=== PATIENT | male | born 1985 | race Caucasian/White ===

== ENCOUNTER 2019-03-07 15:05 | Inpatient (IN) | payer OTHER ==
--- NOTE | 2019-03-07 15:11 | PDOC ---
Rapid Medical Evaluation Chief Complaint: Pain, Acute Time Seen by Provider: 03/07/19 15:08 Medical Evaluation: Allergies Allergy/AdvReac Type Severity Reaction Status Date / Time milk AdvReac Mild Vomiting Verified 08/07/13 19:30 03/07/19 15:10 I have performed a brief in-person evaluation of this patient. The patient presents with a chief complaint of: right flank pain, kidney stone Pertinent physical exam findings:stable and in NAD, non-focal I have ordered the following:labs, ua, pt had ct in [facility] with 5 mm stone. donated left kidney, thinks he was given toradol shot at [facility] The patient will proceed to the ED for further evaluation. 03/07/19 15:40
[2019-03-07] MEDS ORDERED: LACTATED RINGERS SOLUTION 1000 ML INFUS.BAG IV ONE (15:15)
--- NOTE | 2019-03-07 15:17 | PDOC ---
History of Present Illness - General Chief Complaint: Pain, Acute Stated Complaint: SENT BY PCP/ KIDNEY [facility]ONES Time Seen by Provider: 03/07/19 15:08 History Source: Patient, Other ([facility] Records provided with radiology disk image (labeled and attached to paper records)), Primary Care Provider (Pre- arrival notification received from [facility] nurse.) Exam Limitations: No Limitations - History of Present Illness Initial Comments: HPI: 33 y/o male presenting to [facility] ER on referral from [facility] complaining of right lower back/flank pain since yesterday. Endorses nausea, as well as hematuria and decreased urine output this morning. CT of Abdomen/Pelvis was obtained and revealed a 5mm obstructing proximal ureteral calculus with moderate right hydroureteronephrosis. Another 3mm lower pole calculus was noted. Pt states he has chronic intermittent right lower back/flank pain for the past year but believed it to be muscular pain. Experienced another episode of hematuria approx. 1 month ago that resolved without medical intervention. The pt donated his left kidney to his sister, who suffers from lupus. Operation was performed at [facility] in [place] in 2009. Does not follow with a crotch piece baster or a urologist. PCP: Dr. Higgins ([facility]) Medical Hx: - Pt denies past medical history. Denies prescription medications. Surgical Hx: - S/p L Nephrectomy, 2009 Review of Systems: In addition to that documented in the HPI above, the additional ROS was obtained : Constitutional: Denies fevers or chills Head: Denies vision changes ENMT: Denies sore throat CV: Denies chest pain Resp: Denies SOB GI: Endorses nausea and decreased PO intake. Denies vomiting or diarrhea : Per HPI MSK: Denies recent trauma Skin: Denies new rashes Neuro: Denies new numbness or tingling or weakness Endocrine: Denies polyuria Heme: Denies bleeding or bruising Physical Examination: Constitutional: Well-developed, well-nourished adult male in no acute distress or obvious discomfort. Found semi-fowlers on hospital hallway bed. Alert and oriented x4. Answered all questions appropriately and completely. Speech was non -labored, non-pressured. Head: Normocephalic. No obvious external signs of trauma. Cardiovascular / Chest: Regular rate and regular rhythm. No murmur, rubs, clicks , or gallops. Peripheral pulses: radial pulses full. Respiratory: Breathing unlabored. Equal chest rise and fall. Clear to auscultation bilaterally. No stridor, no wheezing, no rhonchi. Gastrointestinal: abdomen is soft, non-tender, non-distended. Diffuse right tenderness to palpation without grimace or guarding. Neuro: Alert and oriented. Moving all four extremities spontaneously. Skin: Warm, dry, and intact. No bruising, rashes, or other lesions. : Mild R CVA tenderness. Psych: Affect: appropriate. Mood: normal. MDM: *Reviewed vital signs, nursing notes, and prior visit documentation (if available). 33 y/o presenting with 5mm obstructing nephrolithiasis in right ureter with hydroureteronephrosis on CT scan from [facility]. Pt is s/p left nephrectomy for donation. No infectious symptoms endorsed. Afebrile. Vitals unremarkable for hypotension or tachycardia. Physical exam as described above. Will obtain CBC, CMP, UA, and urine culture. Made NPO. Ordered LR for maintenance fluids. Urgent urologic consult placed. Will not obtain repeat imaging given availability of report and CT images. Unable to upload images to PACS because of a formatting issue. Report and image disc labeled with pt sticker and attached to paper chart by RN. CBC unremarkable for leukocytosis. CMP revealed elevated Cr with decreased GFR. No recent labs available for comparison. Pt unable to provide sufficient urine for UA and culture at time of note signing. Telephone consultation with Dr. Corea, urologist alteration specialist. Verbally appraised of the pts HPI, ED course, and current plan of management. Will take to OR tonight for stent placement as facility schedule allows. Requests pt be admitted to hospitalist service. Telephone consultation with resident Dr. Perez. Verbally appraised of the pts HPI, ED course, and current plan of management. Will admit pt to med/surg for attending Dr. Burroughs. Marcelo Springer M.D., PGY1 Emergency Medicine Resident Past History - Past Medical History Allergies/Adverse Reactions: Allergies Allergy/AdvReac Type Severity Reaction Status Date / Time milk AdvReac Mild Vomiting Verified 03/07/19 15:11 Home Medications: Ambulatory Orders No Home Medications 0 dose .ROUTE UTDICT 06/08/13 Diphenhydramine HCl [Benadryl Capsules -] 25 mg PO Q6H #28 capsule 08/07/13 EPINEPHrine (EPI-PEN 0.3MG) [Epipen 0.3MG -] 0.3 mg IM ASDIR #2 pens 08/07/13 Loratadine [Claritin -] 10 mg PO DAILY #30 tablet 08/07/13 Ranitidine HCl [Zantac 75] 75 mg PO DAILY #30 tablet 08/07/13 COPD: No Disorders: Yes (DONATED ONE KIDNEY) - Surgical History Abdominal Surgery: Yes (Donated left kidney) - Suicide/Smoking/Psychosocial Hx Smoking Status: No Smoking History: Never smoked Number of Cigarettes Smoked Daily: 0 Information on smoking cessation initiated: No Hx Alcohol Use: No Drug/Substance Use Hx: No *Physical Exam - Vital Signs Last Vital Signs Temp Pulse Resp BP Pulse Ox 98.6 F 76 18 124/70 97 03/07/19 15:08 03/07/19 15:08 03/07/19 15:08 03/07/19 15:08 03/07/19 15:08 ED Treatment Course - LABORATORY CBC & Chemistry Diagram: 03/07/19 16:03 03/07/19 16:03 - RADIOLOGY Radiology Studies Ordered: Category Date Time Status KIDNEY / RENAL US [US] Stat Ultrasound 03/07/19 15:16 Ordered *DC/Admit/Observation/Transfer Diagnosis at time of Disposition: Nephrolithiasis, History of nephrectomy, left, Elevated serum creatinine Obstruction of ureter Qualifiers: Laterality: right Qualified Code(s): N13.5 - Crossing vessel and stricture of ureter without hydronephrosis Hematuria Qualifiers: Hematuria type: gross Qualified Code(s): R31.0 - Gross hematuria - Discharge Dispostion Condition at time of disposition: Stable Decision to Admit order: Yes - Referrals - Patient Instructions - Post Discharge Activity
--- NOTE | 2019-03-07 15:58 | PDOC ---
Documentation entered by Sunitha Koehler SCRIBE, acting as scribe for Amaury Cano MD. Amaury Cano MD: This documentation has been prepared by the Rodo tabares Xhesika, SCRIBE, under my direction and personally reviewed by me in its entirety. I confirm that the documentation accurately reflects all work, treatment, procedures, and medical decision making performed by me. Attending Attestation - Resident Resident Name: SpirngerMarcelo - ED Attending Attestation I have performed the following: I have examined & evaluated the patient, The case was reviewed & discussed with the resident, I agree w/resident's findings & plan - HPI HPI: 03/07/19 15:53 33-year-old healthy male with history of donated left kidney nephrectomy 2009 presents from outside office diagnosed with obstructing 5 mm proximal right ureteral stone, onset of pain this morning, oliguria with gross hematuria since then. 03/07/19 16:13 The patient is a 33 year old male, with a significant PMH of L kidney donation ( 2009) who presents to the emergency department with R flank pain. The patient was seen at [facility], had a CT done which showed a 5mm obstructing stone. The patient notes he is endorsing hematuria since then. The patient denies chest pain, shortness of breath or dizziness. The patient denies fever, chills, nausea, vomiting, diarrhea or constipation. The patient denies dysuria, frequency, urgency Allergy: NKDA. milk Surgical History: Abdominal Surgery (Donated L kidney) PCP: Kyle Givens - Physicial Exam PE: 03/07/19 15:54 VSS well appearing lying in stretcher. no jaundice/pallor s1s2 rrr, ctab soft/nd/nt. + R CVAT. no edema, no rash - Medical Decision Making 03/07/19 15:54 33y/o M h/o L nephrectomy with obstructing proximal R ureteral stone. check Cr, UA no need for additional imaging will need urgent decompression with urology. discussed with Dr. Coronado, available for intervention. will discuss with OR.
[2019-03-07] MEDS ORDERED: LACTATED RINGERS SOLUTION 1,000 ML/1,000 ML INFUS.BAG IV SCH ×2 (16:00→17:05)
[2019-03-07 16:45] LABS: BASO % 0.6 % (0-2.0); EOS % 1.3 % (0-4.5); HEMATOCRIT 39.4 % (35.4-49); HEMOGLOBIN 13.3 GM/dL (11.7-16.9); LYMPH % 23.4 % (8-40); MCH 31.9 pg (25.7-33.7); MCHC 33.8 g/dl (32.0-35.9); MEAN CELL VOLUME 94.6 fl (80-96); MEAN PLT VOLUME 8.6 fl (7.5-11.1); MONO % 10.4 % (3.8-10.2); NEUT % 64.3 % (42.8-82.8); PLATELET COUNT 237 K/MM3 (134-434); RBC 4.17 M/mm3 (4.00-5.60); RDW 13.1 % (11.9-15.9)
[2019-03-07] MEDS ORDERED: morphine CARPU-JECT 4 MG/1 ML DISP.SYRIN IVPUSH ONE (16:59)
[2019-03-07] MEDS ORDERED: morphine SULFATE 4 MG/ML VIAL ONE (17:05)
[2019-03-07] MEDS ORDERED: morphine SULFATE 4 MG/ML VIAL IVPUSH PRN (17:09)
[2019-03-07 17:10] LABS: ALBUMIN 4.1 g/dl (3.4-5.0); BILIRUBIN,TOTAL 0.6 mg/dL (0.2-1); CALCIUM 9.1 mg/dL (8.5-10.1); CREATININE 2.7 mg/dL (0.55-1.3); POTASSIUM 4.1 mmol/L (3.5-5.1); TOT PROT 7.8 g/dl (6.4-8.2)
[2019-03-07] MEDS ORDERED: ONDANSETRON 4 MG/2 ML VIAL IVPB PRN ×2 (17:47→21:34)
[2019-03-07] MEDS ORDERED: CEFAZOLIN 1 GM in DEXTROSE 5%-WATER - 50 ML IVPB ONE (17:48)
--- NOTE | 2019-03-07 17:50 | HP ---
CHIEF COMPLAINT: pain abdomen PCP: dr crow HISTORY OF PRESENT ILLNESS: The patient is a 33 year old male, with a significant PMH of L kidney donation (2009) who presents to the emergency department with R flank pain8/10 in intensity, got better after medicine, non radiating The patient was seen at [facility] urgent care, had a CT done which showed a 5mm obstructing stone and was sent to ER. States he has not passed urine in last 24 hour. Denies fever and chills. Reports nausea but no vomiting. Denies burning mictuartion. Denies previous h/o renal stones ER course was notable for: (1)cbc, cmp (2)CT done in [facility] (3) Recent Travel: no PAST MEDICAL HISTORY: ckd PAST SURGICAL HISTORY: left nephrectomy in 2009. donated to his sister who has sle Social History: Smoking:no Alcohol:no Drugs: no Family History: elder sister has dvt and stroke. half sister has sle and cancer Allergies milk Adverse Reaction (Mild, Verified 03/07/19 15:11) Vomiting HOME MEDICATIONS: Home Medications Medication Instructions Recorded No Home Medications 0 dose .ROUTE UTDICT 06/08/13 Diphenhydramine HCl [Benadryl 25 mg PO Q6H #28 capsule 08/07/13 Capsules -] EPINEPHrine (EPI-PEN 0.3MG) 0.3 mg IM ASDIR #2 pens 08/07/13 [Epipen 0.3MG -] Loratadine [Claritin -] 10 mg PO DAILY #30 tablet 08/07/13 Ranitidine HCl [Zantac 75] 75 mg PO DAILY #30 tablet 08/07/13 REVIEW OF SYSTEMS CONSTITUTIONAL: Absent: fever, chills, diaphoresis, generalized weakness, malaise, loss of appetite, weight change HEENT: Absent: rhinorrhea, nasal congestion, throat pain, throat swelling, difficulty swallowing, mouth swelling, ear pain, eye pain, visual changes CARDIOVASCULAR: Absent: chest pain, syncope, palpitations, irregular heart rate, lightheadedness , peripheral edema RESPIRATORY: Absent: cough, shortness of breath, dyspnea with exertion, orthopnea, wheezing, stridor, hemoptysis GASTROINTESTINAL: Absent: abdominal pain, abdominal distension, nausea, vomiting, diarrhea, constipation, melena, hematochezia GENITOURINARY: Absent: dysuria, frequency, urgency, hesitancy, hematuria, flank pain, genital pain MUSCULOSKELETAL: Absent: myalgia, arthralgia, joint swelling, back pain, neck pain SKIN: Absent: rash, itching, pallor HEMATOLOGIC/IMMUNOLOGIC: Absent: easy bleeding, easy bruising, lymphadenopathy, frequent infections ENDOCRINE: Absent: unexplained weight gain, unexplained weight loss, heat intolerance, cold intolerance NEUROLOGIC: Absent: headache, focal weakness or paresthesias, dizziness, unsteady gait, seizure, mental status changes, bladder or bowel incontinence PSYCHIATRIC: Absent: anxiety, depression, suicidal or homicidal ideation, hallucinations. PHYSICAL EXAMINATION Vital Signs - 24 hr 03/07/19 03/07/19 15:08 15:11 Temperature 98.6 F Pulse Rate 76 Respiratory 18 18 Rate Blood Pressure 124/70 O2 Sat by Pulse 97 97 Oximetry (%) GENERAL: Awake, alert, and fully oriented, in no acute distress. HEAD: Normal with no signs of trauma. EYES: Pupils equal, round and reactive to light, extraocular movements intact, sclera anicteric, conjunctiva clear. No lid lag. EARS, NOSE, THROAT: Ears normal, nares patent, oropharynx clear without exudates. dry mucous membranes. NECK: Normal range of motion, supple without lymphadenopathy, JVD, or masses. LUNGS: Breath sounds equal, clear to auscultation bilaterally. No wheezes, and no crackles. No accessory muscle use. HEART: Regular rate and rhythm, normal S1 and S2 without murmur, rub or gallop. ABDOMEN: Soft, nontender, not distended, normoactive bowel sounds, no guarding, no rebound, no masses. no renal nara tenderness, bladder not palpable MUSCULOSKELETAL: Normal range of motion at all joints. No bony deformities or tenderness. No CVA tenderness. UPPER EXTREMITIES: 2+ pulses, warm, well-perfused. No cyanosis. No clubbing. No peripheral edema. LOWER EXTREMITIES: 2+ pulses, warm, well-perfused. No calf tenderness. No peripheral edema. NEUROLOGICAL: Cranial nerves II-XII intact. PSYCHIATRIC: Cooperative. Good eye contact. SKIN: Warm, dry, Laboratory Results - last 24 hr 03/07/19 03/07/19 16:03 16:03 WBC 9.0 RBC 4.17 Hgb 13.3 Hct 39.4 MCV 94.6 MCH 31.9 MCHC 33.8 RDW 13.1 Plt Count 237 MPV 8.6 Absolute Neuts (auto) 5.8 Neutrophils % 64.3 Lymphocytes % 23.4 Monocytes % 10.4 H Eosinophils % 1.3 Basophils % 0.6 Nucleated RBC % 0 Sodium 138 Potassium 4.1 Chloride 104 Carbon Dioxide 28 Anion Gap 6 L BUN 21 H Creatinine 2.7 H Est GFR (CKD-EPI)AfAm 34.10 Est GFR (CKD-EPI)NonAf 29.42 Random Glucose 89 Calcium 9.1 Total Bilirubin 0.6 AST 19 ALT 22 Alkaline Phosphatase 102 Total Protein 7.8 Albumin 4.1 ASSESSMENT/PLAN: The patient is a 33 year old male, with a significant PMH of L kidney donation (2009) who presents to the emergency department with R flank found to have obstructive uropathy. Right obstructive uropathy with hydronephrosis. Urology consult IVfluid LR 200ml/hr pain control with morphine zofran for nausea. As pt has only one kidney and is unable to provide us urine sample although he is afebrile and cbc is normal we will still give him one does of antibiotic. monitor intake and out put discussed with urologist pt is going for DJ stent tonight. pt/inr ua and urine culture ckd on abbey( base line 1.5) Pt it not aware of cause of ckd avoid nephrotoxic drugs iv fluid repeat cr tomorrow fluid: lr 200 ml/hr electrolyte: repeat in am nutrition: npo for now dvt pro: scd for now. gi pro: not required dispo: med surg Visit type - Emergency Visit Emergency Visit: Yes ED Registration Date: 03/07/19 Care time: The patient presented to the Emergency Department on the above date and was hospitalized for further evaluation of their emergent condition. - New Patient This patient is new to me today: Yes Date on this admission: 03/09/19 - Critical Care Critical Care patient: No
[2019-03-07] MEDS ORDERED: CEFAZOLIN 1 GM/D5W 1 GM/50 ML BAG ONE (17:51)
[2019-03-07] MEDS ORDERED: ONDANSETRON 4 MG/2 ML VIAL IVPUSH PRN (18:38)
[2019-03-07] MEDS ORDERED: LACTATED RINGERS SOLUTION 1,000 ML IV SCH (18:45)
--- NOTE | 2019-03-07 18:50 | PN ---
Teaching Attending Note Name of Resident: Jaylan Perez ATTENDING PHYSICIAN STATEMENT I saw and evaluated the patient. I reviewed the resident's note and discussed the case with the resident. I agree with the resident's findings and plan as documented. SUBJECTIVE: Complains of ongoing R flank discomfort. No further nausea/ vomiting. No fever/chills. No dysuria. Hematuria x 2 today OBJECTIVE: Afebrile, Hemodynamically Stable. Last Vital Signs Temp Pulse Resp BP Pulse Ox 98.6 F 76 18 124/70 97 03/07/19 15:08 03/07/19 15:08 03/07/19 15:11 03/07/19 15:08 03/07/19 15:11 HEENT - Atraumatic, Normocephalic Heart - S1, S2, RRR Lungs - clear to auscultation Abdomen - Soft, mild R sided tenderness. Bowel Sounds normal. Extremities - no edema, no calf tenderness. Laboratory Results - last 24 hr 03/07/19 03/07/19 16:03 16:03 WBC 9.0 RBC 4.17 Hgb 13.3 Hct 39.4 MCV 94.6 MCH 31.9 MCHC 33.8 RDW 13.1 Plt Count 237 MPV 8.6 Absolute Neuts (auto) 5.8 Neutrophils % 64.3 Lymphocytes % 23.4 Monocytes % 10.4 H Eosinophils % 1.3 Basophils % 0.6 Nucleated RBC % 0 Sodium 138 Potassium 4.1 Chloride 104 Carbon Dioxide 28 Anion Gap 6 L BUN 21 H Creatinine 2.7 H Est GFR (CKD-EPI)AfAm 34.10 Est GFR (CKD-EPI)NonAf 29.42 Random Glucose 89 Calcium 9.1 Total Bilirubin 0.6 AST 19 ALT 22 Alkaline Phosphatase 102 Total Protein 7.8 Albumin 4.1 Current Medications Generic Name Dose Route Start Last Admin Trade Name Freq PRN Reason Stop Dose Admin Lactated Ringer's 1,000 ml in 1,000 mls @ 200 mls/hr 03/07/19 17:05 03/07/19 17:18 Lactated Ringers Solution IV 200 mls/hr ASDIR KRISTOFER Administration Morphine Sulfate 4 mg 03/07/19 17:09 Morphine Sulfate IVPUSH Q6H PRN PAIN LEVEL 6-10 Ondansetron HCl 8 mg 03/07/19 17:47 Zofran Injection IVPB Q8H PRN NAUSEA Home Medications Medication Instructions Recorded No Home Medications 0 dose .ROUTE UTDICT 06/08/13 Diphenhydramine HCl [Benadryl 25 mg PO Q6H #28 capsule 08/07/13 Capsules -] EPINEPHrine (EPI-PEN 0.3MG) 0.3 mg IM ASDIR #2 pens 08/07/13 [Epipen 0.3MG -] Loratadine [Claritin -] 10 mg PO DAILY #30 tablet 08/07/13 Ranitidine HCl [Zantac 75] 75 mg PO DAILY #30 tablet 08/07/13 ASSESSMENT AND PLAN: 33 year old male with PMH of L Nephrectomy (donated to sister, 2009), presents to ED with L flank pain, nausea, vomiting, oliguria and hematuria. Initially seen at [facility] urgent care, where CT A/P showed 5 mm obstructing R stone. BELL on CKD 3 secondary to R Obstructive Uropathy secondary to Nephrolithiasis Creat 2.7 (baseline 1.5) Solitary kidney s/p L Nephrectomy 2009 (electively donated to sister) Urology consulted - for emergent OR intervention to relieve obstruction. No signs of superimposed infection - afebrile, hemodynamically stable. IV fluids, IV Morphine, IV Zofran prn. Will order reji-operative CXR, especially since patient recently had a URTI and still has residual cough. Post-op DVT Px (patient has family history of Thrombophophilia with sister having had DVTs and Strokes - never tested himself for coagulopathy) Further management as per Urology. GI Px - H2 Juanito
[2019-03-07 19:00] VITALS: BMI 26.4
[2019-03-07] MEDS ORDERED: MIDAZOLAM HCL 2 MG/2 ML SINGLE DOSE VIAL ONE (19:11)
[2019-03-07] MEDS ORDERED: KETOROLAC TROMETHAMINE 30 MG/1 ML VIAL ONE (19:12)
[2019-03-07] MEDS ORDERED: DEXAMETHASONE SOD PHOSPHATE 4 MG/1 ML VIAL ONE (19:12)
[2019-03-07] MEDS ORDERED: FAMOTIDINE 20 MG/50 ML IVPB 20 MG/50 ML MG IVPB SCH (19:15)
[2019-03-07] MEDS ORDERED: ACETAMINOPHEN 1000 MG/100 ML VIAL (NON FORMULARY) IVPB ONE (21:11)
[2019-03-07] MEDS ORDERED: ALBUTEROL SO4 0.083% IH SOL 2.5 MG/3 ML VIAL.NEB. NEB ONE (21:12)
[2019-03-07] MEDS ORDERED: ACETAMINOPHEN 325 MG TABLET (FP) PO PRN (21:34)
[2019-03-07] MEDS ORDERED: DEXTROSE 5%-0.45% SALINE 1,000 ML IV SCH (21:45)
[2019-03-07] MEDS ORDERED: ACETAMINOPHEN INJECTION 100 ML IVPB ONE (21:51)
[2019-03-07] MEDS ORDERED: ceFAZolin SODIUM 1 GM VIAL ONE (22:12)
[2019-03-07] MEDS: CEFAZOLIN 1 GM in DEXTROSE 5%-WATER - 50 ML IVPB SCH (22:15)
[2019-03-07] MEDS ORDERED: ONDANSETRON 4 MG/2 ML VIAL ONE (22:32)
[2019-03-07 23:02] LABS: INR 1.08 (0.83-1.09); PROTHROMBIN TIME (PATIENT) 12.8 SEC (9.7-13.0)
--- NOTE | 2019-03-07 23:28 | PN ---
Progress Note (short form) - Note Progress Note: Pt started coughing up emiliano blood, slightly frothy, in PACU after LMA for cysto /ureteral stent. Pt admitted after surgery that he had been coughing quite a lot since Wednesday, and had asked for a CXR to be done in the the ER prior to surgery (he did not admit to any colds during preoperative anesthetic interview) . Slightly complicating the picture was the fact that he had bitten down on the LMA during extubation, though in my opinion not hard enough to cause a negative pressure pulmonary edema (it was also not an ETT, but an LMA). SpO2 stayed in the high 90s with face tent, but would desaturate into high 80's with nasal cannula. Decision was made to transfer pt to ICU/telemetry instead of a normal bed, and will consult pulmonary in am. Spoke with ICU resident as well.
[2019-03-08] MEDS: DOCUSATE SODIUM 100 MG CAPSULE (FP) PO SCH ×3 (00:19→21:58)
--- NOTE | 2019-03-08 00:27 | CONSULT ---
Consultation: REQUESTING PROVIDER: CONSULT REQUEST: We have been asked to medically evaluate this patient for ( Hemoptysis ). HISTORY OF PRESENT ILLNESS: The patient is a 33 year old male, with a significant PMH of L kidney donation ( 2009) who presents to the emergency department with R flank pain8/10 in intensity, got better after medicine, non radiating The patient was seen at [facility] urgent care, had a CT done which showed a 5mm obstructing stone and was sent to ER. States he has not passed urine in last 24 hour. Denies fever and chills. Reports nausea but no vomiting. Denies burning mictuartion. Denies previous h/o renal stones after the procedure pt developed hemoptysis multiple times bright blood , asked by anesthesia to evaluate the pt pt denies any chest pain , palpitation , sob denies nay headache , blurry vision , leg swelling abdominal pain , pt reports some nausea but no vomiting pt reports one week history of runny nose , congestion , some fever and chills that was treated with OTC meds pt reports one time of hemoptysis last week family reports 2 sisters with DVTS and PE after procedure pt reports sister with lupus. REVIEW OF SYSTEMS: CONSTITUTIONAL: Absent: fever, chills, diaphoresis, generalized weakness, malaise, loss of appetite, weight change HEENT: Absent: rhinorrhea, nasal congestion, throat pain, throat swelling, difficulty swallowing, mouth swelling, ear pain, eye pain, visual changes CARDIOVASCULAR: Absent: chest pain, syncope, palpitations, irregular heart rate, lightheadedness , peripheral edema RESPIRATORY: Absent: cough, shortness of breath, dyspnea with exertion, orthopnea, wheezing, stridor, hemoptysis GASTROINTESTINAL: Absent: abdominal pain, abdominal distension, nausea, vomiting, diarrhea, constipation, melena, hematochezia GENITOURINARY: Absent: dysuria, frequency, urgency, hesitancy, hematuria, flank pain, genital pain MUSCULOSKELETAL: Absent: myalgia, arthralgia, joint swelling, back pain, neck pain SKIN: Absent: rash, itching, pallor HEMATOLOGIC/IMMUNOLOGIC: Absent: easy bleeding, easy bruising, lymphadenopathy, frequent infections ENDOCRINE: Absent: unexplained weight gain, unexplained weight loss, heat intolerance, cold intolerance NEUROLOGIC: Absent: headache, focal weakness or paresthesias, dizziness, unsteady gait, seizure, mental status changes, bladder or bowel incontinence PSYCHIATRIC: Absent: anxiety, depression, suicidal or homicidal ideation, hallucinations. PHYSICAL EXAMINATION Vital Signs - 24 hr 03/07/19 03/07/19 03/07/19 15:08 15:11 18:57 Temperature 98.6 F 98.3 F Pulse Rate 76 72 Respiratory 18 18 18 Rate Blood Pressure 124/70 132/73 O2 Sat by Pulse 97 97 Oximetry (%) 03/07/19 03/07/19 03/07/19 19:16 21:00 21:15 Temperature 98.3 F 98.5 F Pulse Rate 72 90 92 H Respiratory 18 20 23 H Rate Blood Pressure 132/73 113/67 127/41 L O2 Sat by Pulse 97 94 L Oximetry (%) 03/07/19 03/07/19 03/07/19 21:30 21:45 22:00 Temperature Pulse Rate 84 67 82 Respiratory 21 H 26 H 20 Rate Blood Pressure 134/45 L 126/49 L 125/46 L O2 Sat by Pulse 95 95 94 L Oximetry (%) 03/07/19 03/07/19 03/07/19 22:15 22:30 22:45 Temperature 99.5 F Pulse Rate 80 93 H 68 Respiratory 18 19 23 H Rate Blood Pressure 119/63 136/53 L 122/54 L O2 Sat by Pulse 92 L 95 94 L Oximetry (%) GENERAL: Awake, alert, and fully oriented, in no acute distress. HEAD: Normal with no signs of trauma. EYES: Pupils equal, round and reactive to light, extraocular movements intact, sclera anicteric, EARS, NOSE, THROAT: Ears normal, nares patent, oropharynx clear without exudates. Moist mucous membranes. NECK: Normal range of motion, supple LUNGS: Breath sounds equal, clear to auscultation bilaterally. No wheezes, and no crackles. No accessory muscle use. HEART: Regular rate and rhythm, normal S1 and S2 without murmur, rub or gallop. ABDOMEN: Soft, nontender, not distended, normoactive bowel sounds, no guarding, LOWER EXTREMITIES: 2+ pulses, warm, well-perfused. No calf tenderness. No peripheral edema. NEUROLOGICAL: no focal deficit . Normal speech. Normal gait. Laboratory Results - last 24 hr 03/07/19 03/07/19 03/07/19 16:03 16:03 22:05 WBC 9.0 RBC 4.17 Hgb 13.3 Hct 39.4 MCV 94.6 MCH 31.9 MCHC 33.8 RDW 13.1 Plt Count 237 MPV 8.6 Absolute Neuts (auto) 5.8 Neutrophils % 64.3 Lymphocytes % 23.4 Monocytes % 10.4 H Eosinophils % 1.3 Basophils % 0.6 Nucleated RBC % 0 PT with INR INR Sodium 138 Potassium 4.1 Chloride 104 Carbon Dioxide 28 Anion Gap 6 L BUN 21 H Creatinine 2.7 H Est GFR (CKD-EPI)AfAm 34.10 Est GFR (CKD-EPI)NonAf 29.42 Random Glucose 89 Calcium 9.1 Total Bilirubin 0.6 AST 19 ALT 22 Alkaline Phosphatase 102 Total Protein 7.8 Albumin 4.1 Blood Type O POSITIVE Antibody Screen Negative 03/07/19 22:05 WBC RBC Hgb Hct MCV MCH MCHC RDW Plt Count MPV Absolute Neuts (auto) Neutrophils % Lymphocytes % Monocytes % Eosinophils % Basophils % Nucleated RBC % PT with INR 12.80 INR 1.08 Sodium Potassium Chloride Carbon Dioxide Anion Gap BUN Creatinine Est GFR (CKD-EPI)AfAm Est GFR (CKD-EPI)NonAf Random Glucose Calcium Total Bilirubin AST ALT Alkaline Phosphatase Total Protein Albumin Blood Type Antibody Screen Active Medications Generic Name Dose Route Start Last Admin Trade Name Freq PRN Reason Stop Dose Admin Acetaminophen 650 mg 03/07/19 21:34 Tylenol - PO Q6H PRN FEVER > 101 Docusate Sodium 200 mg 03/07/19 22:00 03/08/19 00:19 Colace - PO Not Given BID [facility] Fentanyl 50 mcg 03/07/19 18:38 03/07/19 21:50 Sublimaze Injection - IVPUSH 03/08/19 18:37 50 mcg [id number] PRN Administration PAIN-PACU ORDER X 4 DOSES ONLY Lactated Ringer's 1,000 ml in 1,000 mls @ 200 mls/hr 03/07/19 17:05 03/07/19 17:18 Lactated Ringers Solution IV 200 mls/hr ASDIR [facility] Administration Lactated Ringer's 1,000 mls @ 75 mls/hr 03/07/19 18:45 03/07/19 19:12 Lactated Ringers Solution IV Not Given ASDIR [facility] Famotidine/Sodium Chloride 20 mg in 50 mls @ 100 mls/hr 03/07/19 19:15 22:09 Pepcid 20 Mg Premixed Ivpb - IVPB Not Given Q36H [facility] Dextrose/Sodium Chloride 1,000 mls @ 125 mls/hr 03/07/19 21:45 03/07/19 22:00 D5-1/2ns - IV 100 mls ASDIR [facility] Administration Cefazolin Sodium 1 gm/ 50 mls @ 100 mls/hr 03/07/19 22:00 03/07/19 22:15 Dextrose IVPB 03/08/19 10:29 50 mls Q6H [facility] Administration Morphine Sulfate 4 mg 03/07/19 17:09 Morphine Sulfate IVPUSH Q6H PRN PAIN LEVEL 6-10 Ondansetron HCl 8 mg 03/07/19 17:47 Zofran Injection IVPB Q8H PRN NAUSEA Ondansetron HCl 4 mg 03/07/19 18:38 03/07/19 22:35 Zofran Injection IVPUSH 4 mg Q6H PRN Administration NAUSEA AND/OR VOMITING Tamsulosin HCl 0.4 mg 03/08/19 08:30 Flomax - PO DAILY@0830 [facility] ASSESSMENT/PLAN: 33 year old male with one kidney (donate to his sister in 2009 ) presented to the hospital for R renal stent , due to kidney stone , has one week hsitory of cough and URI , developed hemoptysis after the procedure and admitted to tele for observation # Hemoptysis , # S/P Right renal uretral stent due to kidney stones # solo kidney Plan * cxr with diffuse opacities right lung worse than left * one week history of respiratory congestion and cough with green sputum * no smoking history but family history of lupus and coagulopathy, PE, DVTS * differential is iatrogenic vs infection (bronchitis vs CAP ,TB, fungal , Aspirgilosis ) vs inflammatory vasculitis vs malignancy ,vs bronchiectasis, R.O PE , * cbc, cmp, mg, p, D- DImer , ESR, CRP, ANCA C,p , IDALIA , AGBM Antibodies , * ECHO in AM , BNP * sputum cx , sputum gram stain , * no history of night sweats or weight loss , no recent travel * consider CT chest in AM * no chemechal DVTS proph due to hemoptysis * TEDS, SCDS , * tele monitor * BP, Pulse oxy * chest CT w/o contrast * Dispo: We will continue to follow the patient. Thank you for this consultative opportunity. Visit type - Emergency Visit Emergency Visit: Yes ED Registration Date: 03/07/19 Care time: The patient presented to the Emergency Department on the above date and was hospitalized for further evaluation of their emergent condition. - New Patient This patient is new to me today: Yes Date on this admission: 03/07/19 - Critical Care Critical Care patient: Yes Total Critical Care Time (in minutes): 45 Critical Care Statement: The care of this patient involved high complexity decision making to prevent further life threatening deterioration of the patient 's condition and/or to evaluate & treat vital organ system(s) failure or risk of failure.
[2019-03-08 00:44] LABS: ALBUMIN 3.2 g/dl (3.4-5.0); BILIRUBIN,TOTAL 0.4 mg/dL (0.2-1); CALCIUM 8.2 mg/dL (8.5-10.1); CREATININE 2.2 mg/dL (0.55-1.3); MAGNESIUM 1.7 mg/dL (1.8-2.4); TOT PROT 6.4 g/dl (6.4-8.2)
[2019-03-08 01:41] LABS: HEMATOCRIT 40.6 % (35.4-49); HEMOGLOBIN 13.3 GM/dL (11.7-16.9); MCH 31.2 pg (25.7-33.7); MCHC 32.9 g/dl (32.0-35.9); MEAN CELL VOLUME 94.8 fl (80-96); MEAN PLT VOLUME 8.6 fl (7.5-11.1); PLATELET COUNT 218 K/MM3 (134-434); RBC 4.28 M/mm3 (4.00-5.60); WHITE BLOOD COUNT 11.7 K/mm3 (4.0-10.0)
[2019-03-08 01:57] LABS: INR 1.06 (0.83-1.09); PROTHROMBIN TIME (PATIENT) 12.5 SEC (9.7-13.0)
[2019-03-08 02:00] LABS: ACTIVATED PTT 30.5 SECONDS (25.2-36.5)
[2019-03-08] MEDS ORDERED: DEXTROSE 5%-WATER - 50 ML IVPB ONE ×2 (02:27→11:51)
[2019-03-08] MEDS ORDERED: ceFAZolin SODIUM 1 GM VIAL ONE ×2 (02:27→11:06)
[2019-03-08] MEDS: CEFAZOLIN 1 GM in DEXTROSE 5%-WATER - 50 ML IVPB SCH ×2 (03:04→11:31)
[2019-03-08] MEDS ORDERED: DEXMEDETOMIDINE HCL 200 MCG in SODIUM CHLORIDE 48 ML IVPB SCH (06:15)
[2019-03-08 06:57] LABS: BASO % 0.1 % (0-2.0); HEMATOCRIT 38.7 % (35.4-49); HEMOGLOBIN 13.2 GM/dL (11.7-16.9); LYMPH % 9.9 % (8-40); MCH 32.1 pg (25.7-33.7); MCHC 34.2 g/dl (32.0-35.9); MEAN CELL VOLUME 93.8 fl (80-96); MEAN PLT VOLUME 8.6 fl (7.5-11.1); MONO % 6.9 % (3.8-10.2); NEUT % 83.1 % (42.8-82.8); PLATELET COUNT 243 K/MM3 (134-434); RBC 4.12 M/mm3 (4.00-5.60); RDW 12.7 % (11.9-15.9); WHITE BLOOD COUNT 11.2 K/mm3 (4.0-10.0)
[2019-03-08 07:39] LABS: ALBUMIN 3.4 g/dl (3.4-5.0); BILIRUBIN,TOTAL 0.6 mg/dL (0.2-1); CALCIUM 8.9 mg/dL (8.5-10.1); CREATININE 2.1 mg/dL (0.55-1.3); MAGNESIUM 2.1 mg/dL (1.8-2.4); PHOSPHOROUS 3.6 mg/dL (2.5-4.9); POTASSIUM 4.7 mmol/L (3.5-5.1); TOT PROT 6.9 g/dl (6.4-8.2)
[2019-03-08] MEDS ORDERED: LACTATED RINGERS SOLUTION 1,000 ML IV SCH ×3 (07:46→16:11)
[2019-03-08] MEDS ORDERED: TAMSULOSIN HCL 0.4 MG CAP PO SCH (08:30)
[2019-03-08 08:49] LABS: EPI CELLS 1.2 /HPF (0-5/HPF); HYALINE CASTS 0 /lpf (0-8); URINE APPEARANCE CLEAR; URINE BACTERIA 0.5 /hpf (NEGATIVE); URINE BILIRUBIN NEGATIVE (NEGATIVE); URINE COLOR RED; URINE GLUCOSE (UA) NEGATIVE (NEGATIVE); URINE KETONE NEGATIVE (NEGATIVE); URINE LEUK ESTERASE TRACE (NEGATIVE); URINE NITRITE NEGATIVE (NEGATIVE); URINE PROTEIN 1+ (NEGATIVE); URINE RBC 378 /hpf (0-4); URINE UROBILINOGEN 0.2 mg/dL (0.2-1.0); URINE WBC 6 /hpf (0-5)
[2019-03-08] MEDS ORDERED: AZITHROMYCIN 250 MG TABLET PO SCH (10:00)
[2019-03-08] MEDS ORDERED: CEFTRIAXONE 1 GM in DEXTROSE 5%-WATER - 100 ML IVPB SCH (10:00)
[2019-03-08] MEDS ORDERED: DEXTROSE 5%-WATER - 100 ML IVPB ONE (11:06)
[2019-03-08] MEDS ORDERED: cefTRIAXone SODIUM 1 GM VIAL ONE (11:51)
[2019-03-08] MEDS ORDERED: CEFTRIAXONE 1 GM in DEXTROSE 5%-WATER - 50 ML IVPB SCH (12:00)
--- NOTE | 2019-03-08 12:23 | PN ---
Teaching Attending Note Name of Resident: Hugh De La Cruz ATTENDING PHYSICIAN STATEMENT I saw and evaluated the patient. I reviewed the resident's note and discussed the case with the resident. I agree with the resident's findings and plan as documented. SUBJECTIVE: Pt seen and examined in the ICU. Still with hemoptysis but appears to be resolving. CT chest done showing bilateral upper lobe infiltrates as well as nonspecific nodules. OBJECTIVE: Vital Signs Period Temp Pulse Resp BP Sys/Bravo Pulse Ox Last 24 Hr 98.2 F-99.5 F 67-93 18-26 107-136/41-73 92-97 Intake & Output 03/05/19 03/06/19 03/07/19 03/08/19 23:59 23:59 23:59 23:59 Intake Total 1775 1250 Output Total 800 1600 Balance 975 -350 Weight 76.657 kg Gen: NAD at rest Heart: RRR Lung: decreased breath sounds at the bases Abd: soft, nontender Ext: no edema CBC, BMP 03/08/19 05:30 03/08/19 05:30 Active Medications Acetaminophen (Tylenol -) 650 mg PO Q6H PRN PRN Reason: FEVER > 101 Azithromycin (Zithromax -) 500 mg PO DAILY [facility] Docusate Sodium (Colace -) 200 mg PO BID [facility] Last Admin: 03/08/19 11:31 Dose: 200 mg Fentanyl (Sublimaze Injection -) 50 mcg IVPUSH [id number] PRN PRN Reason: PAIN-PACU ORDER X 4 DOSES ONLY Stop: 03/08/19 18:37 Last Admin: 03/07/19 21:50 Dose: 50 mcg Famotidine/Sodium Chloride (Pepcid 20 Mg Premixed Ivpb -) 20 mg in 50 mls @ 100 mls/hr IVPB Q36H [facility] Last Admin: 03/07/19 22:09 Dose: Not Given Ceftriaxone Sodium 1 gm/ (Dextrose) 50 mls @ 200 mls/hr IVPB DAILY [facility]; Protocol Last Admin: 03/08/19 11:53 Dose: 200 mls/hr Lactated Ringer's (Lactated Ringers Solution) 1,000 mls @ 100 mls/hr IV ASDIR [facility] Last Admin: 03/08/19 11:31 Dose: 100 mls/hr Morphine Sulfate (Morphine Sulfate) 4 mg IVPUSH Q6H PRN PRN Reason: PAIN LEVEL 6-10 Ondansetron HCl (Zofran Injection) 8 mg IVPB Q8H PRN PRN Reason: NAUSEA Ondansetron HCl (Zofran Injection) 4 mg IVPUSH Q6H PRN PRN Reason: NAUSEA AND/OR VOMITING Last Admin: 03/07/19 22:35 Dose: 4 mg Tamsulosin HCl (Flomax -) 0.4 mg PO DAILY@0830 [facility] Last Admin: 03/08/19 08:35 Dose: 0.4 mg ASSESSMENT AND PLAN: Ureteral Stone s/p stent placement Hemoptysis Pneumonia Acute on Chronic Renal Failure h/o Left Nephrectomy - antibiotics for pneumonia - sputum culture, urine antigens - send quantiferon - monitor and quantify hemoptysis - IVF - monitor urine output, creatinine - can d/c airborne isolation, low suspicion for TB - DVT prophylaxis - can monitor on floor
--- NOTE | 2019-03-08 12:57 | PN ---
Progress Note (short form) - Note Progress Note: ID consult dictated imp/reccd 33 yo man history of solitary kidney (donated kidney to his sister in 2009) admitted for anuria and flank pain noted to have cough with green sputum over the weekend stayed home from work on Wednesday and Wednesday due to cough no hemoptysis on Wednesday he developed flank pain and anuria one episode vomiting water no fevers or chills, no weight loss or night sweats he has had prior episoded of flank/back pain attributed to back s'asm last month he had gross hematuria that spontaneously resolved he was admitted yesterday after CT scan done at [facility] showed an obstructing stone he went for surgery last night and had a stent placed post procedure he had hemoptysis and had chest ct showing bilateral infiltrates right more then left started on cefazolin and switched to ceftriaxone /zithromax this am CAP s/p ureteral stent for nephrolithiasis (one kidney) doubt AFB disease- no risk factors, acute illness, probably associated with pneumonia and LMA doubt benefit of blood cultures as he has been started on antibiotics continue rocephin/zithromax sputum culture urinary antigens- legionella and pneumococcus ckd- monitor renal function d/w procurement manager Problem List - Problems (1) Pneumonia Code(s): J18.9 - PNEUMONIA, UNSPECIFIED ORGANISM (2) Nephrolithiasis Code(s): N20.0 - CALCULUS OF KIDNEY (3) Solitary kidney, acquired Code(s): Z90.5 - ACQUIRED ABSENCE OF KIDNEY
--- NOTE | 2019-03-08 13:04 | EKG ---
Test Reason : Blood Pressure : / mmHG Vent. Rate : 078 BPM Atrial Rate : 078 BPM P-R Int : 148 ms QRS Dur : 088 ms QT Int : 386 ms P-R-T Axes : 062 019 031 degrees QTc Int : 440 ms NORMAL SINUS RHYTHM NORMAL ECG NO PREVIOUS ECGS AVAILABLE Confirmed by SHIRA FANG, YUSUF ([id number]) on 03/08/2019 1:03:52 PM Referred By: Confirmed By:YUSUF SILVA MD
--- NOTE | 2019-03-08 14:03 | PN ---
Progress Note, Physician History of Present Illness: Patient seen and examined at bedside. No events overnight. No new complaints. patient continues to have hemoptysis episodes this AM, but states they are improving. - Current Medication List Current Medications: Active Medications Acetaminophen (Tylenol -) 650 mg PO Q6H PRN PRN Reason: FEVER > 101 Azithromycin (Zithromax -) 500 mg PO DAILY [facility] Docusate Sodium (Colace -) 200 mg PO BID [facility] Last Admin: 03/08/19 11:31 Dose: 200 mg Fentanyl (Sublimaze Injection -) 50 mcg IVPUSH [id number] PRN PRN Reason: PAIN-PACU ORDER X 4 DOSES ONLY Stop: 03/08/19 18:37 Last Admin: 03/07/19 21:50 Dose: 50 mcg Famotidine/Sodium Chloride (Pepcid 20 Mg Premixed Ivpb -) 20 mg in 50 mls @ 100 mls/hr IVPB Q36H [facility] Last Admin: 03/07/19 22:09 Dose: Not Given Ceftriaxone Sodium 1 gm/ (Dextrose) 50 mls @ 200 mls/hr IVPB DAILY [facility]; Protocol Last Admin: 03/08/19 11:53 Dose: 200 mls/hr Lactated Ringer's (Lactated Ringers Solution) 1,000 mls @ 100 mls/hr IV ASDIR [facility] Last Admin: 03/08/19 11:31 Dose: 100 mls/hr Morphine Sulfate (Morphine Sulfate) 4 mg IVPUSH Q6H PRN PRN Reason: PAIN LEVEL 6-10 Ondansetron HCl (Zofran Injection) 8 mg IVPB Q8H PRN PRN Reason: NAUSEA Ondansetron HCl (Zofran Injection) 4 mg IVPUSH Q6H PRN PRN Reason: NAUSEA AND/OR VOMITING Last Admin: 03/07/19 22:35 Dose: 4 mg Tamsulosin HCl (Flomax -) 0.4 mg PO DAILY@0830 [facility] Last Admin: 03/08/19 08:35 Dose: 0.4 mg - Objective Vital Signs: Vital Signs Temperature 98.2 F 03/07/19 23:50 Pulse Rate 69 03/08/19 07:00 Respiratory Rate 18 03/08/19 07:00 Blood Pressure 107/49 L 03/08/19 07:00 O2 Sat by Pulse Oximetry (%) 94 L 03/08/19 02:18 Constitutional: Yes: Well Nourished, No Distress, Calm Eyes: Yes: Conjunctiva Clear, EOM Intact HENT: Yes: Atraumatic, Normocephalic Neck: Yes: Supple, Trachea Midline Cardiovascular: Yes: Regular Rate and Rhythm, S1, S2. No: Gallop, Murmur, Rub Respiratory: Yes: Regular, CTA Bilaterally Gastrointestinal: Yes: Normal Bowel Sounds, Soft Edema: No Neurological: Yes: Alert, Oriented, Cran Nerves II-XII Intact Labs: CBC, BMP 03/08/19 05:30 03/08/19 05:30 INR, PTT INR 1.06 (0.83-1.09) 03/08/19 01:26 Assessment/Plan 33 year old male with solitary kidney (donated to his sister in 2009) presented to the hospital c/o n/v and found to have renal stone. Pt admitted to ICU after he developed hemoptysis after LMA extubation following ureteral stent placement. #Neuro -A&Ox3, no deficits. #Pulmonary -patient developed hemoptysis s/o LMA extubation. Per Anesthesia note, patient may have bitten on LMA during extraction. -Patient w/ mild SOB today -Pt titrated from Venturi mask to 2L NC, saturating >95 -CT chest shows b/l infiltrates concerning for aspiration PNA vs CAP -on ceftriaxone and azithromycin day 1 -ID consulted -Hemoptysis improving today, Hb stable -low suspicion for TB; will send Quant to r/o and d/c iso -family history of DVT/PE; low suspicion for embolic event -will get LE doppler r/o DVT -f/u sputum cx, urine antigens for PNA #Cardio -BP stable -no active issues #GI -patient came into ER c/o n/v; no episodes at this time -can give zofran PRN if required #Renal -patient w/ solitary kidney -monitor creatinine -avoid nephrotoxic drugs -LR @ 100 #Prophy -SCDs #FEN -LR @ 100 -lytes wnl -Regular diet #Dispo -patient stable for transfer to floors.
--- NOTE | 2019-03-08 14:26 | PN ---
Progress Note (short form) - Note Progress Note: Anesthesia POD#1 S/P Ureteral Stent Placement under GA VSS,hemoptysis post/op noticed. No bad event during GA. CT scan showed bilateral infilterates. A/P Blood in sputum is stopped now. Looks like the hemptysis was from his existing pneumonia Eleonora Mcintyre MD.
--- NOTE | 2019-03-08 15:28 | ECHO ---
Name: BRANDAN LAMAS Exam:Adult Echocardiogram Study Date: 03/08/2019 08:12 AM Age: 33 yrs Reason For Study: hemoptysis Height: 67 in Weight: 169 lb BSA: 1.9 m2 MMode/2D Measurements & Calculations RVDd: 2.7 cm Ao root diam: 3.4 cm IVSd: 0.65 cm LA dimension: 2.6 cm LVIDd: 4.5 cm ACS: 2.2 cm LVIDs: 2.6 cm LVPWd: 0.68 cm IVSs: 0.87 cm LVPWs: 1.2 cm EDV(Teich): 90.5 ml ESV(Teich): 24.9 ml Doppler Measurements & Calculations MV E max lisandro: 95.5 cm/sec Ao V2 max: 100.1 cm/sec MV A max lisandro: 56.5 cm/sec Ao max P.0 mmHg MV E/A: 1.7 Ao V2 mean: 77.9 cm/sec Ao mean P.6 mmHg Ao V2 VTI: 19.5 cm MR max lisandro: 420.8 cm/sec TR max lisandro: 178.4 cm/sec MR max P.8 mmHg TR max P.9 mmHg Med Peak E' Lisandro: 10.2 cm/sec Med E/e': 9.4 Lat Peak E' Lisandro: 10.6 cm/sec Lat E/e': 9.0 Procedure A two-dimensional transthoracic echocardiogram with color flow and Doppler was performed. A complete two- dimensional transthoracic echocardiogram was performed (2D, M-mode, Doppler and color flow Doppler). Left Ventricle The left ventricle is normal in size. Left ventricular systolic function is normal. Left Ventricular Filling pattern is normal for age. The left ventricular wall motion is normal. Right Ventricle The right ventricle is normal size. There is normal right ventricular wall thickness. The right ventr icular systolic function is normal. The right ventricular wall motion is normal. Atria The left atrial size is normal. Right atrial size is normal. Mitral Valve The mitral valve is normal in structure and function. There is no mitral valve stenosis. There is tra ce to mild mitral regurgitation. Tricuspid Valve The tricuspid valve is normal in structure and function. There is no tricuspid stenosis. There is Tra ce to mild tricuspid regurgitation. Right ventricular systolic pressure is normal. Aortic Valve The aortic valve is normal in structure and function. No hemodynamically significant valvular aortic stenosis. No aortic regurgitation is present. Pulmonic Valve The pulmonic valve is not well visualized. Great Vessels The aortic root is normal size. Pericardium/Pleura There is no pericardial effusion. Interpretation Summary The left ventricle is normal in size. Left ventricular systolic function is normal. The left ventricular wall motion is normal. Left Ventricular Filling pattern is normal for age. The right ventricle is normal size. The right ventricular systolic function is normal. There is Trace to mild tricuspid regurgitation. Right ventricular systolic pressure is normal. MD Alexis De Dios 03/08/2019 03:27 PM
--- NOTE | 2019-03-08 15:35 | PN ---
Physical Exam: SUBJECTIVE: Patient seen and examined at bedside- no acute events overnigt; patient states he is having mild dyspnea however is feeling better; his hemoptysis has improved and he is having less and less episdoes; he is urinating - he denies CP/N/V OBJECTIVE: Vital Signs Period Temp Pulse Resp BP Sys/Bravo Pulse Ox Last 24 Hr 98.2 F-99.5 F 67-93 18-26 107-136/41-73 92-97 GENERAL: The patient is awake, alert saturating in 90's in EYES: PEERLA: EOMI no scleral icterus . NECK: no JVD; no lymphadenopathy LUNGS: diminished breath sounds at the bases. HEART: Regular rate and rhythm, S1, S2 without murmur, rub or gallop. ABDOMEN: Soft, nontender, nondistended, normoactive bowel sounds, no guarding, no rebound, no hepatosplenomegaly, no masses. EXTREMITIES: 2+ pulses, warm, well-perfused, no edema. PSYCH: Normal mood, normal affect. SKIN: Warm, dry, normal turgor, no rashes or lesions noted Laboratory Results - last 24 hr 03/07/19 03/07/19 03/07/19 16:03 16:03 22:05 WBC 9.0 RBC 4.17 Hgb 13.3 Hct 39.4 MCV 94.6 MCH 31.9 MCHC 33.8 RDW 13.1 Plt Count 237 MPV 8.6 Absolute Neuts (auto) 5.8 Neutrophils % 64.3 Lymphocytes % 23.4 Monocytes % 10.4 H Eosinophils % 1.3 Basophils % 0.6 Nucleated RBC % 0 ESR PT with INR INR PTT (Actin FS) D-Dimer Sodium 138 Potassium 4.1 Chloride 104 Carbon Dioxide 28 Anion Gap 6 L BUN 21 H Creatinine 2.7 H Est GFR (CKD-EPI)AfAm 34.10 Est GFR (CKD-EPI)NonAf 29.42 Random Glucose 89 Calcium 9.1 Phosphorus Magnesium Total Bilirubin 0.6 AST 19 ALT 22 Alkaline Phosphatase 102 C-Reactive Protein B-Natriuretic Peptide Total Protein 7.8 Albumin 4.1 Urine Color Urine Appearance Urine pH Ur Specific [place] Urine Protein Urine Glucose (UA) Urine Ketones Urine Blood Urine Nitrite Urine Bilirubin Urine Urobilinogen Ur Leukocyte Esterase Urine WBC (Auto) Urine RBC (Auto) Urine Casts (Auto) U Epithel Cells (Auto) Urine Bacteria (Auto) Blood Type O POSITIVE Antibody Screen Negative 03/07/19 03/07/19 03/07/19 22:05 22:20 22:20 WBC RBC Hgb Hct MCV MCH MCHC RDW Plt Count MPV Absolute Neuts (auto) Neutrophils % Lymphocytes % Monocytes % Eosinophils % Basophils % Nucleated RBC % ESR PT with INR 12.80 INR 1.08 PTT (Actin FS) D-Dimer Sodium 141 Potassium 4.0 Chloride 107 Carbon Dioxide 29 Anion Gap 6 L BUN 22 H Creatinine 2.2 H Est GFR (CKD-EPI)AfAm 43.68 Est GFR (CKD-EPI)NonAf 37.69 Random Glucose 120 H Calcium 8.2 L Phosphorus 4.0 Magnesium 1.7 L Total Bilirubin 0.4 AST 17 ALT 19 Alkaline Phosphatase 90 C-Reactive Protein B-Natriuretic Peptide Total Protein 6.4 Albumin 3.2 L Urine Color Urine Appearance Urine pH Ur Specific [place] Urine Protein Urine Glucose (UA) Urine Ketones Urine Blood Urine Nitrite Urine Bilirubin Urine Urobilinogen Ur Leukocyte Esterase Urine WBC (Auto) Urine RBC (Auto) Urine Casts (Auto) U Epithel Cells (Auto) Urine Bacteria (Auto) Blood Type Cancelled Antibody Screen Cancelled 03/07/19 03/08/19 03/08/19 22:20 00:12 01:26 WBC 11.7 H RBC 4.28 Hgb 13.3 Hct 40.6 MCV 94.8 MCH 31.2 MCHC 32.9 RDW 13.0 Plt Count 218 MPV 8.6 Absolute Neuts (auto) Neutrophils % Lymphocytes % Monocytes % Eosinophils % Basophils % Nucleated RBC % ESR PT with INR INR PTT (Actin FS) D-Dimer Sodium Potassium Chloride Carbon Dioxide Anion Gap BUN Creatinine Est GFR (CKD-EPI)AfAm Est GFR (CKD-EPI)NonAf Random Glucose Calcium Phosphorus Magnesium Cancelled Total Bilirubin AST ALT Alkaline Phosphatase C-Reactive Protein B-Natriuretic Peptide Total Protein Albumin Urine Color Urine Appearance Urine pH Ur Specific [place] Urine Protein Urine Glucose (UA) Urine Ketones Urine Blood Urine Nitrite Urine Bilirubin Urine Urobilinogen Ur Leukocyte Esterase Urine WBC (Auto) Urine RBC (Auto) Urine Casts (Auto) U Epithel Cells (Auto) Urine Bacteria (Auto) Blood Type O POSITIVE Antibody Screen 03/08/19 03/08/19 03/08/19 01:26 01:26 05:30 WBC 11.2 H RBC 4.12 Hgb 13.2 Hct 38.7 MCV 93.8 MCH 32.1 MCHC 34.2 RDW 12.7 Plt Count 243 MPV 8.6 Absolute Neuts (auto) 9.3 H Neutrophils % 83.1 H D Lymphocytes % 9.9 D Monocytes % 6.9 Eosinophils % 0.0 D Basophils % 0.1 Nucleated RBC % 0 ESR PT with INR 12.50 INR 1.06 PTT (Actin FS) 30.5 D-Dimer 2290 H Sodium Potassium Chloride Carbon Dioxide Anion Gap BUN Creatinine Est GFR (CKD-EPI)AfAm Est GFR (CKD-EPI)NonAf Random Glucose Calcium Phosphorus Magnesium Total Bilirubin AST ALT Alkaline Phosphatase C-Reactive Protein B-Natriuretic Peptide Total Protein Albumin Urine Color Urine Appearance Urine pH Ur Specific [place] Urine Protein Urine Glucose (UA) Urine Ketones Urine Blood Urine Nitrite Urine Bilirubin Urine Urobilinogen Ur Leukocyte Esterase Urine WBC (Auto) Urine RBC (Auto) Urine Casts (Auto) U Epithel Cells (Auto) Urine Bacteria (Auto) Blood Type Antibody Screen 03/08/19 03/08/19 03/08/19 05:30 05:30 05:30 WBC RBC Hgb Hct MCV MCH MCHC RDW Plt Count MPV Absolute Neuts (auto) Neutrophils % Lymphocytes % Monocytes % Eosinophils % Basophils % Nucleated RBC % ESR 13 H PT with INR INR PTT (Actin FS) D-Dimer Sodium 140 Potassium 4.7 Chloride 106 Carbon Dioxide 28 Anion Gap 6 L BUN 20 H Creatinine 2.1 H Est GFR (CKD-EPI)AfAm 46.21 Est GFR (CKD-EPI)NonAf 39.87 Random Glucose 117 H Calcium 8.9 Phosphorus 3.6 Magnesium 2.1 Total Bilirubin 0.6 AST 19 ALT 18 Alkaline Phosphatase 85 C-Reactive Protein 1.1 H B-Natriuretic Peptide Total Protein 6.9 Albumin 3.4 Urine Color Urine Appearance Urine pH Ur Specific [place] Urine Protein Urine Glucose (UA) Urine Ketones Urine Blood Urine Nitrite Urine Bilirubin Urine Urobilinogen Ur Leukocyte Esterase Urine WBC (Auto) Urine RBC (Auto) Urine Casts (Auto) U Epithel Cells (Auto) Urine Bacteria (Auto) Blood Type Antibody Screen 03/08/19 03/08/19 05:30 08:15 WBC RBC Hgb Hct MCV MCH MCHC RDW Plt Count MPV Absolute Neuts (auto) Neutrophils % Lymphocytes % Monocytes % Eosinophils % Basophils % Nucleated RBC % ESR PT with INR INR PTT (Actin FS) D-Dimer Sodium Potassium Chloride Carbon Dioxide Anion Gap BUN Creatinine Est GFR (CKD-EPI)AfAm Est GFR (CKD-EPI)NonAf Random Glucose Calcium Phosphorus Magnesium Total Bilirubin AST ALT Alkaline Phosphatase C-Reactive Protein B-Natriuretic Peptide 341.2 H Total Protein Albumin Urine Color Red Urine Appearance Clear Urine pH 6.0 Ur Specific [place] 1.007 L Urine Protein 1+ H Urine Glucose (UA) Negative Urine Ketones Negative Urine Blood 3+ H Urine Nitrite Negative Urine Bilirubin Negative Urine Urobilinogen 0.2 Ur Leukocyte Esterase Trace Urine WBC (Auto) 6 Urine RBC (Auto) 378 Urine Casts (Auto) 0 U Epithel Cells (Auto) 1.2 Urine Bacteria (Auto) 0.5 Blood Type Antibody Screen Active Medications Generic Name Dose Route Start Last Admin Trade Name Freq PRN Reason Stop Dose Admin Acetaminophen 650 mg 03/07/19 21:34 Tylenol - PO Q6H PRN FEVER > 101 Azithromycin 500 mg 03/08/19 10:00 03/08/19 12:00 Zithromax - PO 500 mg DAILY [facility] Administration Docusate Sodium 200 mg 03/07/19 22:00 03/08/19 11:31 Colace - PO 200 mg BID [facility] Administration Fentanyl 50 mcg 03/07/19 18:38 03/07/19 21:50 Sublimaze Injection - IVPUSH 03/08/19 18:37 50 mcg [id number] PRN Administration PAIN-PACU ORDER X 4 DOSES ONLY Famotidine/Sodium Chloride 20 mg in 50 mls @ 100 mls/hr 03/07/19 19:15 22:09 Pepcid 20 Mg Premixed Ivpb - IVPB Not Given Q36H [facility] Ceftriaxone Sodium 1 gm/ 50 mls @ 200 mls/hr 03/08/19 12:00 03/08/19 11:53 Dextrose IVPB 200 mls/hr DAILY [facility] Administration Protocol Lactated Ringer's 1,000 mls @ 100 mls/hr 03/08/19 11:21 03/08/19 11:31 Lactated Ringers Solution IV 100 mls/hr ASDIR [facility] Administration Morphine Sulfate 4 mg 03/07/19 17:09 Morphine Sulfate IVPUSH Q6H PRN PAIN LEVEL 6-10 Ondansetron HCl 8 mg 03/07/19 17:47 Zofran Injection IVPB Q8H PRN NAUSEA Ondansetron HCl 4 mg 03/07/19 18:38 03/07/19 22:35 Zofran Injection IVPUSH 4 mg Q6H PRN Administration NAUSEA AND/OR VOMITING Tamsulosin HCl 0.4 mg 03/08/19 08:30 03/08/19 08:35 Flomax - PO 0.4 mg DAILY@0830 [facility] Administration ASSESSMENT/PLAN: 33 year old male with solitary kidney (donated to his sister in 2009) presented to the hospital c/o n/v and found to have renal stone. Pt admitted to ICU after he developed hemoptysis after LMA extubation following ureteral stent placement. S/p Ureteral Stent placement (POD #1) patient developed hemoptysis s/o LMA extubation. -CT chest shows b/l infiltrates concerning for aspiration PNA vs CAP -Ceftriaxone and azithromycin day 1 -ID on board -quanteferon pending however low suspicion for TB -LE doppler does not show evidence of DVT -family history of DVTs and clots -patient now on nasal canula and saturating well BELL on CKD -patients Cr downtrending (2.7 to 2.1 this AM) -avoid nehrotioxc drugs -will continue to monitor #FEN LR @100 monitor electrolytes regular diet Problem List - Problems (1) Hemoptysis Code(s): R04.2 - HEMOPTYSIS (2) Elevated serum creatinine Code(s): R79.89 - OTHER SPECIFIED ABNORMAL FINDINGS OF BLOOD CHEMISTRY (3) Hematuria Code(s): R31.9 - HEMATURIA, UNSPECIFIED Qualifiers: Hematuria type: gross Qualified Code(s): R31.0 - Gross hematuria (4) Pneumonia Code(s): J18.9 - PNEUMONIA, UNSPECIFIED ORGANISM Visit type - Emergency Visit Emergency Visit: Yes ED Registration Date: 03/07/19 Care time: The patient presented to the Emergency Department on the above date and was hospitalized for further evaluation of their emergent condition. - New Patient This patient is new to me today: Yes Date on this admission: 03/08/19 - Critical Care Critical Care patient: No
[2019-03-08] MEDS ORDERED: ACETAMINOPHEN 325 MG TABLET (FP) PO PRN (16:11)
--- NOTE | 2019-03-08 16:30 | OP ---
DATE OF OPERATION: 03/07/2019 PREOPERATIVE DIAGNOSIS: Unilateral kidney with hydronephrosis. POSTOPERATIVE DIAGNOSIS: Unilateral kidney with hydronephrosis. PROCEDURE: Cystoscopy with right retrograde pyelogram and placement of right ureteral stent. ATTENDING SURGEON: Vega Coronado MD ANESTHESIA: General by LMA. DESCRIPTION OF PROCEDURE: Patient brought into the operating room. After timeout was performed, he was placed carefully in lithotomy with SCDs on the lower extremities and prepped and draped in the usual sterile fashion. A 23-Lao cystoscope was passed under vision. Prostate was noted to be consistent with the patient's age of 33. Bladder itself was normal. The right orifice was immediately identified and intubated with a Sensor wire over which an open-ended catheter was placed. The open-ended catheter was advanced about prison up the ureter and a retrograde performed showing marked hydronephrosis extending to approximately 3 cm distal to the UPJ. A clear stone could not be seen, however. The Sensor wire was reintroduced through the open-ended catheter and advanced under fluoroscopy to the left renal pelvis. A 6-Lao, 26-cm, double pigtail catheter was then advanced over the Sensor wire and positioned so that it coiled in the right renal pelvis and distally was noted to coil in the bladder. At the completion of the procedure, final x-ray did confirm the presence of the coil in the renal pelvis and the distal coil in the bladder. It could be noted quite easily that there was now a significant amount of urine coming through the ureteral stent. Bladder was drained. The cystoscope was removed with no significant blood loss. Patient left the OR in stable, satisfactory condition. MD RM MORALES/[id number]
--- NOTE | 2019-03-08 20:12 | PN ---
Teaching Attending Note Name of Resident: Madeline Hurt ATTENDING PHYSICIAN STATEMENT I saw and evaluated the patient. I reviewed the resident's note and discussed the case with the resident. I agree with the resident's findings and plan as documented. SUBJECTIVE: Developed Hemoptysis s/p Urological Surgery. R flank discomfort resolving. No further nausea/vomiting. No fever/chills. Hematuria resolving. OBJECTIVE: Afebrile, Hemodynamically Stable. Last Vital Signs Temp Pulse Resp BP Pulse Ox 98.4 F 82 18 119/96 95 03/08/19 18:18 03/08/19 18:18 03/08/19 18:18 03/08/19 18:18 03/08/19 09:00 Heart - S1, S2, RRR Lungs - clear to auscultation Abdomen - Soft, non-tender. Bowel Sounds normal. Extremities - no edema, no calf tenderness. Laboratory Results - last 24 hr 03/07/19 03/07/19 03/07/19 22:05 22:05 22:20 WBC RBC Hgb Hct MCV MCH MCHC RDW Plt Count MPV Absolute Neuts (auto) Neutrophils % Lymphocytes % Monocytes % Eosinophils % Basophils % Nucleated RBC % ESR PT with INR 12.80 INR 1.08 PTT (Actin FS) D-Dimer Sodium 141 Potassium 4.0 Chloride 107 Carbon Dioxide 29 Anion Gap 6 L BUN 22 H Creatinine 2.2 H Est GFR (CKD-EPI)AfAm 43.68 Est GFR (CKD-EPI)NonAf 37.69 Random Glucose 120 H Calcium 8.2 L Phosphorus 4.0 Magnesium 1.7 L Total Bilirubin 0.4 AST 17 ALT 19 Alkaline Phosphatase 90 C-Reactive Protein B-Natriuretic Peptide Total Protein 6.4 Albumin 3.2 L Urine Color Urine Appearance Urine pH Ur Specific [place] Urine Protein Urine Glucose (UA) Urine Ketones Urine Blood Urine Nitrite Urine Bilirubin Urine Urobilinogen Ur Leukocyte Esterase Urine WBC (Auto) Urine RBC (Auto) Urine Casts (Auto) U Epithel Cells (Auto) Urine Bacteria (Auto) Blood Type O POSITIVE Antibody Screen Negative 03/07/19 03/07/19 03/08/19 22:20 22:20 00:12 WBC RBC Hgb Hct MCV MCH MCHC RDW Plt Count MPV Absolute Neuts (auto) Neutrophils % Lymphocytes % Monocytes % Eosinophils % Basophils % Nucleated RBC % ESR PT with INR INR PTT (Actin FS) D-Dimer Sodium Potassium Chloride Carbon Dioxide Anion Gap BUN Creatinine Est GFR (CKD-EPI)AfAm Est GFR (CKD-EPI)NonAf Random Glucose Calcium Phosphorus Magnesium Cancelled Total Bilirubin AST ALT Alkaline Phosphatase C-Reactive Protein B-Natriuretic Peptide Total Protein Albumin Urine Color Urine Appearance Urine pH Ur Specific [place] Urine Protein Urine Glucose (UA) Urine Ketones Urine Blood Urine Nitrite Urine Bilirubin Urine Urobilinogen Ur Leukocyte Esterase Urine WBC (Auto) Urine RBC (Auto) Urine Casts (Auto) U Epithel Cells (Auto) Urine Bacteria (Auto) Blood Type Cancelled O POSITIVE Antibody Screen Cancelled 03/08/19 03/08/19 03/08/19 01:26 01:26 01:26 WBC 11.7 H RBC 4.28 Hgb 13.3 Hct 40.6 MCV 94.8 MCH 31.2 MCHC 32.9 RDW 13.0 Plt Count 218 MPV 8.6 Absolute Neuts (auto) Neutrophils % Lymphocytes % Monocytes % Eosinophils % Basophils % Nucleated RBC % ESR PT with INR 12.50 INR 1.06 PTT (Actin FS) 30.5 D-Dimer 2290 H Sodium Potassium Chloride Carbon Dioxide Anion Gap BUN Creatinine Est GFR (CKD-EPI)AfAm Est GFR (CKD-EPI)NonAf Random Glucose Calcium Phosphorus Magnesium Total Bilirubin AST ALT Alkaline Phosphatase C-Reactive Protein B-Natriuretic Peptide Total Protein Albumin Urine Color Urine Appearance Urine pH Ur Specific [place] Urine Protein Urine Glucose (UA) Urine Ketones Urine Blood Urine Nitrite Urine Bilirubin Urine Urobilinogen Ur Leukocyte Esterase Urine WBC (Auto) Urine RBC (Auto) Urine Casts (Auto) U Epithel Cells (Auto) Urine Bacteria (Auto) Blood Type Antibody Screen 03/08/19 03/08/19 03/08/19 05:30 05:30 05:30 WBC 11.2 H RBC 4.12 Hgb 13.2 Hct 38.7 MCV 93.8 MCH 32.1 MCHC 34.2 RDW 12.7 Plt Count 243 MPV 8.6 Absolute Neuts (auto) 9.3 H Neutrophils % 83.1 H D Lymphocytes % 9.9 D Monocytes % 6.9 Eosinophils % 0.0 D Basophils % 0.1 Nucleated RBC % 0 ESR PT with INR INR PTT (Actin FS) D-Dimer Sodium 140 Potassium 4.7 Chloride 106 Carbon Dioxide 28 Anion Gap 6 L BUN 20 H Creatinine 2.1 H Est GFR (CKD-EPI)AfAm 46.21 Est GFR (CKD-EPI)NonAf 39.87 Random Glucose 117 H Calcium 8.9 Phosphorus 3.6 Magnesium 2.1 Total Bilirubin 0.6 AST 19 ALT 18 Alkaline Phosphatase 85 C-Reactive Protein 1.1 H B-Natriuretic Peptide Total Protein 6.9 Albumin 3.4 Urine Color Urine Appearance Urine pH Ur Specific [place] Urine Protein Urine Glucose (UA) Urine Ketones Urine Blood Urine Nitrite Urine Bilirubin Urine Urobilinogen Ur Leukocyte Esterase Urine WBC (Auto) Urine RBC (Auto) Urine Casts (Auto) U Epithel Cells (Auto) Urine Bacteria (Auto) Blood Type Antibody Screen 03/08/19 03/08/19 03/08/19 05:30 05:30 08:15 WBC RBC Hgb Hct MCV MCH MCHC RDW Plt Count MPV Absolute Neuts (auto) Neutrophils % Lymphocytes % Monocytes % Eosinophils % Basophils % Nucleated RBC % ESR 13 H PT with INR INR PTT (Actin FS) D-Dimer Sodium Potassium Chloride Carbon Dioxide Anion Gap BUN Creatinine Est GFR (CKD-EPI)AfAm Est GFR (CKD-EPI)NonAf Random Glucose Calcium Phosphorus Magnesium Total Bilirubin AST ALT Alkaline Phosphatase C-Reactive Protein B-Natriuretic Peptide 341.2 H Total Protein Albumin Urine Color Red Urine Appearance Clear Urine pH 6.0 Ur Specific [place] 1.007 L Urine Protein 1+ H Urine Glucose (UA) Negative Urine Ketones Negative Urine Blood 3+ H Urine Nitrite Negative Urine Bilirubin Negative Urine Urobilinogen 0.2 Ur Leukocyte Esterase Trace Urine WBC (Auto) 6 Urine RBC (Auto) 378 Urine Casts (Auto) 0 U Epithel Cells (Auto) 1.2 Urine Bacteria (Auto) 0.5 Blood Type Antibody Screen Current Medications Generic Name Dose Route Start Last Admin Trade Name Freq PRN Reason Stop Dose Admin Acetaminophen 650 mg 03/08/19 16:11 Tylenol - PO Q6H PRN FEVER > 101 Azithromycin 500 mg 03/09/19 10:00 Zithromax PO DAILY [facility] Docusate Sodium 200 mg 03/08/19 22:00 Colace - PO BID [facility] Ceftriaxone Sodium 1 gm/ 50 mls @ 200 mls/hr 03/09/19 10:00 Dextrose IVPB DAILY [facility] Protocol Lactated Ringer's 1,000 mls @ 100 mls/hr 03/08/19 16:11 Lactated Ringers Solution IV ASDIR [facility] Famotidine/Sodium Chloride 20 mg in 50 mls @ 100 mls/hr 03/09/19 07:15 Pepcid 20 Mg Premixed Ivpb - IVPB Q36H [facility] Tamsulosin HCl 0.4 mg 03/09/19 08:30 Flomax - PO DAILY@0830 [facility] ASSESSMENT AND PLAN: 33 year old male with PMH of L Nephrectomy (donated to sister, 2009), presents to ED with L flank pain, nausea, vomiting, oliguria and hematuria. Initially seen at [facility] urgent care, where CT A/P showed 5 mm obstructing R stone. Developed Hemoptysis s/p GA for Urological intervention 03/07. 1. BELL on CKD 3 and Hematuria secondary to R Obstructive Uropathy secondary to Nephrolithiasis Creat 2.7 ---> 2.1 (baseline 1.5) Solitary kidney s/p L Nephrectomy 2009 (electively donated to sister) POD 1 s/p Ureteral stenting by Urology. Passing urine spontaneously, hematuria resolved. Started on Flomax. 2. Hemoptysis secondary to CAP - resolving CXR/CT Chest - bilateral infiltrates Treated with IV Ceftriaxone/Azithromycin. H/H stable. Afebrile, Hemodynamically Stable. Pulmonary/ID following. DVT Px- Famotidine
[2019-03-09 06:46] LABS: CALCIUM 8.6 mg/dL (8.5-10.1); CREATININE 1.7 mg/dL (0.55-1.3); MAGNESIUM 1.5 mg/dL (1.8-2.4); PHOSPHOROUS 2.8 mg/dL (2.5-4.9); POTASSIUM 3.8 mmol/L (3.5-5.1)
[2019-03-09] MEDS ORDERED: MAGNESIUM OXIDE 400 MG TABLET (FP) PO ONE ×2 (06:53→07:45)
[2019-03-09 06:55] LABS: HEMATOCRIT 35.4 % (35.4-49); MCH 31.8 pg (25.7-33.7); MCHC 33.9 g/dl (32.0-35.9); MEAN CELL VOLUME 93.8 fl (80-96); MEAN PLT VOLUME 8.6 fl (7.5-11.1); PLATELET COUNT 223 K/MM3 (134-434); RBC 3.77 M/mm3 (4.00-5.60); RDW 12.8 % (11.9-15.9); WHITE BLOOD COUNT 9.7 K/mm3 (4.0-10.0)
[2019-03-09] MEDS ORDERED: FAMOTIDINE 20 MG/50 ML IVPB 20 MG/50 ML MG IVPB SCH (07:15)
--- NOTE | 2019-03-09 07:37 | PN ---
Physical Exam: SUBJECTIVE: Patient seen and examined at bedside. No acute events overnight. States that he feels more congested and sputum is now a reddish brown and mixed with green and is less in quantitiy. Denies SOB, headache, swelling, n/v/d. OBJECTIVE: Vital Signs Period Temp Pulse Resp BP Sys/Bravo Pulse Ox Last 24 Hr 98.0 F-98.6 F 63-94 18-20 102-121/47-96 95-95 GENERAL: The patient is awake, alert, and fully oriented, in no acute distress. EYES: PERRL, extraocular movements intact, sclera anicteric, conjunctiva clear. No ptosis. LUNGS: Rhonchi, no wheezes, no crackles, no accessory muscle use. HEART: Regular rate and rhythm, S1, S2 without murmur, rub or gallop. ABDOMEN: Soft, nontender, nondistended, normoactive bowel sounds, no guarding, no rebound, no hepatosplenomegaly, no masses. EXTREMITIES: 2+ pulses, warm, well-perfused, no edema. NEUROLOGICAL: Cranial nerves II through XII grossly intact. Normal speech, gait not observed. PSYCH: Normal mood, normal affect. SKIN: Warm, dry, normal turgor, no rashes or lesions noted Laboratory Results - last 24 hr 03/07/19 03/08/19 03/08/19 22:20 05:30 05:30 WBC 11.2 H RBC 4.12 Hgb 13.2 Hct 38.7 MCV 93.8 MCH 32.1 MCHC 34.2 RDW 12.7 Plt Count 243 MPV 8.6 Absolute Neuts (auto) 9.3 H Neutrophils % 83.1 H D Lymphocytes % 9.9 D Monocytes % 6.9 Eosinophils % 0.0 D Basophils % 0.1 Nucleated RBC % 0 ESR Sodium 140 Potassium 4.7 Chloride 106 Carbon Dioxide 28 Anion Gap 6 L BUN 20 H Creatinine 2.1 H Est GFR (CKD-EPI)AfAm 46.21 Est GFR (CKD-EPI)NonAf 39.87 Random Glucose 117 H Calcium 8.9 Phosphorus 3.6 Magnesium 2.1 Total Bilirubin 0.6 AST 19 ALT 18 Alkaline Phosphatase 85 Total Protein 6.9 Albumin 3.4 Urine Color Urine Appearance Urine pH Ur Specific [place] Urine Protein Urine Glucose (UA) Urine Ketones Urine Blood Urine Nitrite Urine Bilirubin Urine Urobilinogen Ur Leukocyte Esterase Urine WBC (Auto) Urine RBC (Auto) Urine Casts (Auto) U Epithel Cells (Auto) Urine Bacteria (Auto) Blood Type Cancelled Antibody Screen Cancelled 03/08/19 03/08/19 03/09/19 05:30 08:15 05:30 WBC RBC Hgb Hct MCV MCH MCHC RDW Plt Count MPV Absolute Neuts (auto) Neutrophils % Lymphocytes % Monocytes % Eosinophils % Basophils % Nucleated RBC % ESR 13 H Sodium 142 Potassium 3.8 Chloride 106 Carbon Dioxide 30 Anion Gap 5 L BUN 18 Creatinine 1.7 H Est GFR (CKD-EPI)AfAm 59.65 Est GFR (CKD-EPI)NonAf 51.47 Random Glucose 108 H Calcium 8.6 Phosphorus 2.8 Magnesium 1.5 L Total Bilirubin AST ALT Alkaline Phosphatase Total Protein Albumin Urine Color Red Urine Appearance Clear Urine pH 6.0 Ur Specific [place] 1.007 L Urine Protein 1+ H Urine Glucose (UA) Negative Urine Ketones Negative Urine Blood 3+ H Urine Nitrite Negative Urine Bilirubin Negative Urine Urobilinogen 0.2 Ur Leukocyte Esterase Trace Urine WBC (Auto) 6 Urine RBC (Auto) 378 Urine Casts (Auto) 0 U Epithel Cells (Auto) 1.2 Urine Bacteria (Auto) 0.5 Blood Type Antibody Screen Active Medications Generic Name Dose Route Start Last Admin Trade Name Andreaq PRN Reason Stop Dose Admin Acetaminophen 650 mg 03/08/19 16:11 Tylenol - PO Q6H PRN FEVER > 101 Azithromycin 500 mg 03/09/19 10:00 Zithromax PO DAILY [facility] Docusate Sodium 200 mg 03/08/19 22:00 03/08/19 21:58 Colace - PO Not Given BID [facility] Ceftriaxone Sodium 1 gm/ 50 mls @ 200 mls/hr 03/09/19 10:00 Dextrose IVPB DAILY [facility] Protocol Lactated Ringer's 1,000 mls @ 100 mls/hr 03/08/19 16:11 Lactated Ringers Solution IV ASDIR [facility] Magnesium Oxide 400 mg 03/09/19 07:31 Mag-Ox - PO 03/09/19 07:32 ONCE ONE Ranitidine HCl 150 mg 03/09/19 10:00 Zantac - PO DAILY [facility] Tamsulosin HCl 0.4 mg 03/09/19 08:30 Flomax - PO DAILY@0830 [facility] ASSESSMENT/PLAN: 33yo M with PMH of L nephrectomy (donated to sister 2009) found to have renal stone. Pt admitted to ICU after he developed hemoptysis after LMA extubation following ureteral stent placement. PULM -Hemoptysis s/o LMA extubation. Per Anesthesia note, patient may have bitten on LMA during extraction. -Titrated from Venturi mask to 2L NC, saturating >95 -CT chest shows b/l infiltrates concerning for aspiration PNA vs CAP v. blood v. vasculitis v. ARDS v. underlying disease -Ceftriaxone and azithromycin day 2 -ID consulted -Low suspicion for TB; Quant sent to r/o and d/c iso -Family history of DVT/PE; low suspicion for embolic event -Doppler negative for DVT -F/u sputum cx, urine antigens for PNA -Immunology studies pending RENAL -Solitary kidney -BELL likely 2/2 obstruction, s/p ureteral stent -Monitor creatinine, levels decreasing -Avoid nephrotoxic drugs PROPHYLAXIS -SCDs FEN -Lytes wnl -Regular diet Dispo: Patient stable for transfer to floors. Visit type - Emergency Visit Emergency Visit: Yes ED Registration Date: 03/07/19 Care time: The patient presented to the Emergency Department on the above date and was hospitalized for further evaluation of their emergent condition. - New Patient This patient is new to me today: Yes Date on this admission: 03/09/19 - Critical Care Critical Care patient: Yes Total Critical Care Time (in minutes): 35 Critical Care Statement: The care of this patient involved high complexity decision making to prevent further life threatening deterioration of the patient 's condition and/or to evaluate & treat vital organ system(s) failure or risk of failure.
--- NOTE | 2019-03-09 08:04 | PN ---
DATE OF VISIT: 03/08/2019 Patient is a 33-year-old gentleman who was brought to the OR the previous night and had a right ureteral stent placed in his solitary kidney. Following the surgery, patient was noted to have some hemoptysis. While the patient did report having had a cough prior to the procedure, there had been no report of hemoptysis. Patient was therefore transferred to the ICU after the surgery. On the morning that I saw him, he was voiding spontaneously and his creatinine, which had peaked at 2.7, had come down to 2.1. At this time, there does not seem to be any need for any further intervention. Patient should arrange for a followup in approximately 2-3 weeks, at which time, x-rays will be done to determine if the stone is still present, and if it is, depending on its density and where it is, we will arrange for him to have ureteroscopy or external shock wave lithotripsy. If there are any questions, please feel free to contact me on my cell . The patient can call the following number, , and ask to make an appointment to see me in the [place] office on [facility]. MD RM MORALES/[id number]
[2019-03-09] MEDS ORDERED: MAGNESIUM SULF 50% (8.12 MEQ/2 ML-1 GM VIAL) IVPB ONE (08:35)
--- NOTE | 2019-03-09 08:38 | PN ---
Physical Exam: SUBJECTIVE: Patient seen and examined at bedside- patient states he is feeling better; still having some congestion and cough mixed with phlegm and slightly blood tinged however improving and is saturating well on nasal canula; he states he is still having some burning on urination; denies CP/N/V OBJECTIVE: Vital Signs Period Temp Pulse Resp BP Sys/Bravo Pulse Ox Last 24 Hr 98.0 F-98.6 F 63-94 17-20 102-121/47-96 95-95 GENERAL: The patient is awake, alert, and fully oriented, in no acute distress.. EYES:PEERLA: EOMI no scleral icterus NECK: no JVD; no lymphadenopathy LUNGS: slightly diminished breath sounds at the right base HEART: Regular rate and rhythm, S1, S2 without murmur, rub or gallop. ABDOMEN: Soft, nontender, nondistended, normoactive bowel sounds, no guarding, no rebound, no hepatosplenomegaly, no masses. EXTREMITIES: 2+ pulses, warm, well-perfused, no edema. PSYCH: Normal mood, normal affect. SKIN: Warm, dry, normal turgor, no rashes or lesions noted Laboratory Results - last 24 hr 03/07/19 03/08/19 03/08/19 22:20 05:30 08:15 WBC RBC Hgb Hct MCV MCH MCHC RDW Plt Count MPV ESR 13 H Sodium Potassium Chloride Carbon Dioxide Anion Gap BUN Creatinine Est GFR (CKD-EPI)AfAm Est GFR (CKD-EPI)NonAf Random Glucose Calcium Phosphorus Magnesium Urine Color Red Urine Appearance Clear Urine pH 6.0 Ur Specific [place] 1.007 L Urine Protein 1+ H Urine Glucose (UA) Negative Urine Ketones Negative Urine Blood 3+ H Urine Nitrite Negative Urine Bilirubin Negative Urine Urobilinogen 0.2 Ur Leukocyte Esterase Trace Urine WBC (Auto) 6 Urine RBC (Auto) 378 Urine Casts (Auto) 0 U Epithel Cells (Auto) 1.2 Urine Bacteria (Auto) 0.5 Blood Type Cancelled Antibody Screen Cancelled 03/09/19 03/09/19 05:30 05:30 WBC 9.7 RBC 3.77 L Hgb 12.0 Hct 35.4 MCV 93.8 MCH 31.8 MCHC 33.9 RDW 12.8 Plt Count 223 MPV 8.6 ESR Sodium 142 Potassium 3.8 Chloride 106 Carbon Dioxide 30 Anion Gap 5 L BUN 18 Creatinine 1.7 H Est GFR (CKD-EPI)AfAm 59.65 Est GFR (CKD-EPI)NonAf 51.47 Random Glucose 108 H Calcium 8.6 Phosphorus 2.8 Magnesium 1.5 L Urine Color Urine Appearance Urine pH Ur Specific [place] Urine Protein Urine Glucose (UA) Urine Ketones Urine Blood Urine Nitrite Urine Bilirubin Urine Urobilinogen Ur Leukocyte Esterase Urine WBC (Auto) Urine RBC (Auto) Urine Casts (Auto) U Epithel Cells (Auto) Urine Bacteria (Auto) Blood Type Antibody Screen Active Medications Generic Name Dose Route Start Last Admin Trade Name Freq PRN Reason Stop Dose Admin Acetaminophen 650 mg 03/08/19 16:11 Tylenol - PO Q6H PRN FEVER > 101 Azithromycin 500 mg 03/09/19 10:00 Zithromax PO DAILY [facility] Docusate Sodium 200 mg 03/08/19 22:00 03/08/19 21:58 Colace - PO Not Given BID [facility] Ceftriaxone Sodium 1 gm/ 50 mls @ 200 mls/hr 03/09/19 10:00 Dextrose IVPB DAILY [facility] Protocol Lactated Ringer's 1,000 mls @ 100 mls/hr 03/08/19 16:11 Lactated Ringers Solution IV ASDIR [facility] Ranitidine HCl 150 mg 03/09/19 10:00 Zantac - PO DAILY [facility] Tamsulosin HCl 0.4 mg 03/09/19 08:30 Flomax - PO DAILY@0830 [facility] ASSESSMENT/PLAN: 33 year old male with solitary kidney (donated to his sister in 2009) presented to the hospital c/o n/v and found to have renal stone. Pt admitted to ICU after he developed hemoptysis after LMA extubation following ureteral stent placement. S/p Ureteral Stent placement (POD #2) patient had a right ureteral stent placed by Dr. Davila- will need f/u in 2-3 weeks for further evaluation patient developed hemoptysis s/o LMA extubation. -CT chest shows b/l infiltrates concerning for aspiration PNA vs CAP -Ceftriaxone and azithromycin day 2 -ID on board -quanteferon pending however low suspicion for TB -LE doppler does not show evidence of DVT -family history of DVTs and clots -patient now on nasal canula and saturating well -Dr. Barboza consulted for possible wegners workup? BELL on CKD -patients Cr downtrending (2.7 to 1.7 this AM) -avoid nephrotioxc drugs -will continue to monitor -Dr. Crow consulted #FEN LR @100 monitor electrolytes regular diet Problem List - Problems (1) Hemoptysis Code(s): R04.2 - HEMOPTYSIS (2) Elevated serum creatinine Code(s): R79.89 - OTHER SPECIFIED ABNORMAL FINDINGS OF BLOOD CHEMISTRY (3) Hematuria Code(s): R31.9 - HEMATURIA, UNSPECIFIED Qualifiers: Hematuria type: gross Qualified Code(s): R31.0 - Gross hematuria (4) Pneumonia Code(s): J18.9 - PNEUMONIA, UNSPECIFIED ORGANISM Visit type - Emergency Visit Emergency Visit: Yes ED Registration Date: 03/07/19 Care time: The patient presented to the Emergency Department on the above date and was hospitalized for further evaluation of their emergent condition. - New Patient This patient is new to me today: No - Critical Care Critical Care patient: No
[2019-03-09] MEDS ORDERED: cefTRIAXone SODIUM 1 GM VIAL ONE (09:27)
[2019-03-09] MEDS ORDERED: DEXTROSE 5%-WATER - 50 ML IVPB ONE (09:28)
[2019-03-09] MEDS: DOCUSATE SODIUM 100 MG CAPSULE (FP) PO SCH ×2 (09:38→22:24)
[2019-03-09] MEDS: TAMSULOSIN HCL 0.4 MG CAP PO SCH (09:38)
[2019-03-09] MEDS ORDERED: PT OWN MED DRAWER 7, Y5N ONE ×2 (09:52→12:33)
[2019-03-09] MEDS ORDERED: RANITIDINE HCL 150 MG TABLET (FP) PO SCH (10:00)
[2019-03-09] MEDS ORDERED: CEFTRIAXONE 1 GM in DEXTROSE 5%-WATER - 50 ML IVPB SCH (10:00)
[2019-03-09] MEDS ORDERED: AZITHROMYCIN 500 MG TABLET PO SCH (10:00)
--- NOTE | 2019-03-09 11:40 | PN ---
Teaching Attending Note Name of Resident: Carmela Reilly ATTENDING PHYSICIAN STATEMENT I saw and evaluated the patient. I reviewed the resident's note and discussed the case with the resident. I agree with the resident's findings and plan as documented. SUBJECTIVE: Patient seen and examined in the ICU. Resolving hemoptysis, some dark streaked sputum overnight. No bright red blood. SOB seems to be improving. No CP. Intake & Output 03/06/19 03/07/19 03/08/19 03/09/19 23:59 23:59 23:59 23:59 Intake Total 1775 2425 Output Total 800 3200 Balance 975 -775 Weight 169 lb Last Vital Signs Temp Pulse Resp BP Pulse Ox 98.3 F 63 17 103/58 L 97 03/09/19 08:00 03/09/19 08:00 03/09/19 09:00 03/09/19 08:00 03/09/19 09:00 Active Medications Acetaminophen (Tylenol -) 650 mg PO Q6H PRN PRN Reason: FEVER > 101 Azithromycin (Zithromax) 500 mg PO DAILY [facility] Docusate Sodium (Colace -) 200 mg PO BID [facility] Last Admin: 03/09/19 09:38 Dose: 200 mg Ceftriaxone Sodium 1 gm/ (Dextrose) 50 mls @ 200 mls/hr IVPB DAILY [facility]; Protocol Last Admin: 03/09/19 09:38 Dose: 200 mls/hr Ranitidine HCl (Zantac -) 150 mg PO DAILY [facility] Last Admin: 03/09/19 09:38 Dose: 150 mg Tamsulosin HCl (Flomax -) 0.4 mg PO DAILY@0830 [facility] Last Admin: 03/09/19 09:38 Dose: 0.4 mg Gen: NAD at rest Heart: RRR Lung: Bilateral scattered rhonchi Abd: soft, nontender Ext: no edema [employer]: Non-focal Laboratory Results - last 24 hr 03/07/19 03/09/19 03/09/19 22:20 05:30 05:30 WBC 9.7 RBC 3.77 L Hgb 12.0 Hct 35.4 MCV 93.8 MCH 31.8 MCHC 33.9 RDW 12.8 Plt Count 223 MPV 8.6 Sodium 142 Potassium 3.8 Chloride 106 Carbon Dioxide 30 Anion Gap 5 L BUN 18 Creatinine 1.7 H Est GFR (CKD-EPI)AfAm 59.65 Est GFR (CKD-EPI)NonAf 51.47 Random Glucose 108 H Calcium 8.6 Phosphorus 2.8 Magnesium 1.5 L Blood Type Cancelled Antibody Screen Cancelled ASSESSMENT AND PLAN: Ureteral Stone s/p stent placement Hemoptysis Pneumonia Acute on Chronic Renal Failure h/o Left Nephrectomy - ABX per ID - Follow sputum culture, urine antigens - Follow quantiferon - monitor and quantify hemoptysis - IVF - monitor urine output, creatinine - Previously D/W ID: monitor off airborne isolation as there is a low suspicion for TB - DVT prophylaxis - Patient follows at [facility]. Advised to take copies of his CT Chest and will need followup in 4 to 6 weeks - Can monitor on floor Dr Head
--- NOTE | 2019-03-09 12:44 | CONSULT ---
Consult Consult Specialty:: Nephrology Reason for Consultation:: BELL - History of Present Illness Chief Complaint: right flank pain History of Present Illness: Pt is a 33 year old male with pmhx of kidney donation who presented to the ER with right flank and back pain. He also had decreased urine output and hematuria. He was found to have a 5mm obstructing stone. Pt was taken for cysto and stent placement. He then developed hemoptysis. He is awake and alert and able to give history. He was found to have elevated creatinine and I was called to evaluate him. His renal function has been improving. His donated his kidney to his sister who suffers from lupus. He denies nsais use. - History Source History Provided By: Patient - Past Medical History Gastrointestinal: Yes: GERD - Past Surgical History Past Surgical History: Yes: Nephrectomy - Alcohol/Substance Use Hx Alcohol Use: No - Smoking History Smoking history: Never smoked Aproximately how many cigarettes per day: 0 Home Medications - Allergies Allergies/Adverse Reactions: Allergies Allergy/AdvReac Type Severity Reaction Status Date / Time No Known Drug Allergies Allergy Verified 03/07/19 19:06 milk AdvReac Mild Vomiting Verified 03/07/19 15:11 - Home Medications Home Medications: Ambulatory Orders No Home Medications 0 dose .ROUTE UTDICT 06/08/13 Diphenhydramine HCl [Benadryl Capsules -] 25 mg PO Q6H #28 capsule 08/07/13 EPINEPHrine (EPI-PEN 0.3MG) [Epipen 0.3MG -] 0.3 mg IM ASDIR #2 pens 08/07/13 Loratadine [Claritin -] 10 mg PO DAILY #30 tablet 08/07/13 Ranitidine HCl [Zantac 75] 75 mg PO DAILY #30 tablet 08/07/13 Family Disease History - Family Disease History Family Disease History: Other: Sister (sle) Review of Systems - Review of Systems Constitutional: reports: Malaise HENT: reports: No Symptoms Neck: reports: No Symptoms Cardiovascular: reports: No Symptoms Respiratory: reports: Hemoptysis Gastrointestinal: reports: No Symptoms Genitourinary: reports: Flank Pain, Hematuria Musculoskeletal: reports: No Symptoms Integumentary: reports: No Symptoms Neurological: reports: No Symptoms Endocrine: reports: No Symptoms Hematology/Lymphatic: reports: No Symptoms Psychiatric: reports: No Symptoms Physical Exam Vital Signs: Vital Signs Temperature 98.3 F 03/09/19 08:00 Pulse Rate 68 03/09/19 12:00 Respiratory Rate 18 03/09/19 12:00 Blood Pressure 117/55 L 03/09/19 12:00 O2 Sat by Pulse Oximetry (%) 97 03/09/19 09:00 Constitutional: Yes: Calm Eyes: Yes: Conjunctiva Clear HENT: Yes: Atraumatic Neck: Yes: Supple Cardiovascular: Yes: S1, S2 Respiratory: Yes: CTA Bilaterally Gastrointestinal: Yes: Soft Renal/: Yes: WNL Extremities: Yes: WNL Edema: No Neurological: Yes: Oriented Psychiatric: Yes: Oriented Labs: CBC, BMP 03/09/19 05:30 03/09/19 05:30 Laboratory Tests 03/07/19 03/07/19 03/08/19 16:03 22:20 05:30 Creatinine 2.7 H 2.2 H 2.1 H Urine Protein Urine Blood IDALIA Screen c-ANCA Proteinase 3 (PR3) p-ANCA Atypical p-ANCA Myeloperoxidase Ab Glomerular Base Memb Ab 03/08/19 03/08/19 03/08/19 05:30 05:30 05:30 Creatinine Urine Protein Urine Blood IDALIA Screen Pending c-ANCA Pending Proteinase 3 (PR3) Pending p-ANCA Pending Atypical p-ANCA Pending Myeloperoxidase Ab Pending Glomerular Base Memb Ab Pending 03/08/19 03/09/19 08:15 05:30 Creatinine 1.7 H Urine Protein 1+ H Urine Blood 3+ H IDALIA Screen c-ANCA Proteinase 3 (PR3) p-ANCA Atypical p-ANCA Myeloperoxidase Ab Glomerular Base Memb Ab Imaging - Results Chest X-ray: Report Reviewed Problem List - Problems (1) Hematuria Code(s): R31.9 - HEMATURIA, UNSPECIFIED Qualifiers: Hematuria type: gross Qualified Code(s): R31.0 - Gross hematuria (2) Hemoptysis Code(s): R04.2 - HEMOPTYSIS (3) History of nephrectomy, left Code(s): Z90.5 - ACQUIRED ABSENCE OF KIDNEY (4) Nephrolithiasis Code(s): N20.0 - CALCULUS OF KIDNEY Assessment/Plan Current Medications Generic Name Dose Route Start Last Admin Trade Name Freq PRN Reason Stop Dose Admin Acetaminophen 650 mg 03/08/19 16:11 Tylenol - PO Q6H PRN FEVER > 101 Azithromycin 500 mg 03/09/19 10:00 03/09/19 12:41 Zithromax PO 500 mg DAILY [facility] Administration Docusate Sodium 200 mg 03/08/19 22:00 03/09/19 09:38 Colace - PO 200 mg BID [facility] Administration Ceftriaxone Sodium 1 gm/ 50 mls @ 200 mls/hr 03/09/19 10:00 03/09/19 09:38 Dextrose IVPB 200 mls/hr DAILY [facility] Administration Protocol Ranitidine HCl 150 mg 03/09/19 10:00 03/09/19 09:38 Zantac - PO 150 mg DAILY [facility] Administration Tamsulosin HCl 0.4 mg 03/09/19 08:30 03/09/19 09:38 Flomax - PO 0.4 mg DAILY@0830 [facility] Administration Impression 1. BELL 2. nephrolithiasis 3. hemoptysis 4. PNA 5. s/p uretral stent Plan - renal function is improving - repeat labs in am - follow anca ang gbm - check anti dsdna - encourage hydration - follow vasculitis workup
--- NOTE | 2019-03-09 13:15 | EKG ---
Test Reason : Blood Pressure : / mmHG Vent. Rate : 070 BPM Atrial Rate : 070 BPM P-R Int : 148 ms QRS Dur : 088 ms QT Int : 396 ms P-R-T Axes : 051 010 011 degrees QTc Int : 427 ms NORMAL SINUS RHYTHM LOW VOLTAGE QRS BORDERLINE ECG WHEN COMPARED WITH ECG OF 07-MAR-2019 17:27, NO SIGNIFICANT CHANGE WAS FOUND Confirmed by AG BETTS MD ([id number]) on 03/09/2019 1:14:59 PM Referred By: Confirmed By:AG BETTS MD
--- NOTE | 2019-03-09 15:58 | PN ---
Progress Note (short form) - Note Progress Note: doing well hemoptysis has resolved some stent discomfort on the left Vital Signs Period Temp Pulse Resp BP Sys/Bravo Pulse Ox Last 24 Hr 98.0 F-98.6 F 63-94 17-20 102-119/47-96 95-97 cor-rrr lungs decreased bs at bases abd soft,nt ext no edema CBC, BMP 03/09/19 05:30 03/09/19 05:30 Microbiology 03/09/19 10:21 Urine For Antigen Detection Legionella Antigen - Final 03/09/19 10:21 Urine For Antigen Detection Streptococcus pneumoniae Antigen (M - Final a/p CAP-hemoptysis resolving s/p ureteral stent for nephrolithiasis (one kidney) doubt AFB disease- no risk factors, acute illness, probably associated with pneumonia and LMA continue rocephin/zithromax day #2 ckd- monitor renal function Problem List - Problems (1) Pneumonia Code(s): J18.9 - PNEUMONIA, UNSPECIFIED ORGANISM (2) Nephrolithiasis Code(s): N20.0 - CALCULUS OF KIDNEY (3) Solitary kidney, acquired Code(s): Z90.5 - ACQUIRED ABSENCE OF KIDNEY
--- NOTE | 2019-03-09 18:13 | PN ---
Teaching Attending Note Name of Resident: Madeline Hurt ATTENDING PHYSICIAN STATEMENT I saw and evaluated the patient. I reviewed the resident's note and discussed the case with the resident. I agree with the resident's findings and plan as documented. SUBJECTIVE: Developed Hemoptysis s/p Urological Surgery - resolving. R flank discomfort resolved. No further nausea/vomiting. No fever/chills. Hematuria resolving. OBJECTIVE: Afebrile, Hemodynamically Stable. Last Vital Signs Temp Pulse Resp BP Pulse Ox 98.3 F 90 19 110/72 97 03/09/19 16:00 03/09/19 16:00 03/09/19 16:00 03/09/19 16:00 03/09/19 09:00 Heart - S1, S2, RRR Lungs - clear to auscultation Abdomen - Soft, non-tender. Bowel Sounds normal. Extremities - no edema, no calf tenderness. Laboratory Results - last 24 hr 03/09/19 03/09/19 05:30 05:30 WBC 9.7 RBC 3.77 L Hgb 12.0 Hct 35.4 MCV 93.8 MCH 31.8 MCHC 33.9 RDW 12.8 Plt Count 223 MPV 8.6 Sodium 142 Potassium 3.8 Chloride 106 Carbon Dioxide 30 Anion Gap 5 L BUN 18 Creatinine 1.7 H Est GFR (CKD-EPI)AfAm 59.65 Est GFR (CKD-EPI)NonAf 51.47 Random Glucose 108 H Calcium 8.6 Phosphorus 2.8 Magnesium 1.5 L Current Medications Generic Name Dose Route Start Last Admin Trade Name Freq PRN Reason Stop Dose Admin Acetaminophen 650 mg 03/08/19 16:11 Tylenol - PO Q6H PRN FEVER > 101 Azithromycin 500 mg 03/09/19 10:00 03/09/19 12:41 Zithromax PO 500 mg DAILY [facility] Administration Docusate Sodium 200 mg 03/08/19 22:00 03/09/19 09:38 Colace - PO 200 mg BID [facility] Administration Ceftriaxone Sodium 1 gm/ 50 mls @ 200 mls/hr 03/09/19 10:00 03/09/19 09:38 Dextrose IVPB 200 mls/hr DAILY [facility] Administration Protocol Ranitidine HCl 150 mg 03/09/19 10:00 03/09/19 09:38 Zantac - PO 150 mg DAILY [facility] Administration Tamsulosin HCl 0.4 mg 03/09/19 08:30 03/09/19 09:38 Flomax - PO 0.4 mg DAILY@0830 [facility] Administration ASSESSMENT AND PLAN: 33 year old male with PMH of L Nephrectomy (donated to sister, 2009), presents to ED with L flank pain, nausea, vomiting, oliguria and hematuria. Initially seen at [facility] urgent care, where CT A/P showed 5 mm obstructing R stone. Developed Hemoptysis s/p GA for Urological intervention 03/07. 1. BELL on CKD 3 and Hematuria secondary to R Obstructive Uropathy secondary to Nephrolithiasis - resolving s/p Ureteral stenting Creat 2.7 ---> 1.7 (baseline 1.5) Solitary kidney s/p L Nephrectomy 2009 (electively donated to sister) POD 2 s/p Ureteral stenting by Urology. Passing urine spontaneously, hematuria resolved. Started on Flomax. Urine Cx pending. 2. Hemoptysis secondary to CAP - resolving CXR/CT Chest - bilateral infiltrates Treated with IV Ceftriaxone/Azithromycin. H/H stable. Afebrile, Hemodynamically Stable. Pulmonary/ID following. Pending vasculitis/autoimmune GN work-up. Nephrology following. 3. Hypomagnesemia - repleted. DVT Px- Ranitidine
[2019-03-10 06:25] LABS: HEMATOCRIT 36.8 % (35.4-49); HEMOGLOBIN 12.6 GM/dL (11.7-16.9); MCH 32.1 pg (25.7-33.7); MCHC 34.3 g/dl (32.0-35.9); MEAN CELL VOLUME 93.7 fl (80-96); PLATELET COUNT 228 K/MM3 (134-434); RBC 3.93 M/mm3 (4.00-5.60); RDW 13.1 % (11.9-15.9); WHITE BLOOD COUNT 8.1 K/mm3 (4.0-10.0)
[2019-03-10 07:01] LABS: CREATININE 1.5 mg/dL (0.55-1.3)
--- NOTE | 2019-03-10 07:53 | PN ---
Physical Exam: SUBJECTIVE: Patient seen and examined at bedside. No acute events overnight. OBJECTIVE: Vital Signs Period Temp Pulse Resp BP Sys/Bravo Pulse Ox Last 24 Hr 98.0 F-98.3 F 63-90 16-20 103-120/50-81 97-98 GENERAL: The patient is awake, alert, and fully oriented, in no acute distress. HEAD: Normal with no signs of trauma. EYES: PERRL, extraocular movements intact, sclera anicteric, conjunctiva clear. No ptosis. ENT: Ears normal, nares patent, oropharynx clear without exudates, moist mucous membranes. NECK: Trachea midline, full range of motion, supple. LUNGS: Breath sounds equal, clear to auscultation bilaterally, no wheezes, no crackles, no accessory muscle use. HEART: Regular rate and rhythm, S1, S2 without murmur, rub or gallop. ABDOMEN: Soft, nontender, nondistended, normoactive bowel sounds, no guarding, no rebound, no hepatosplenomegaly, no masses. EXTREMITIES: 2+ pulses, warm, well-perfused, no edema. NEUROLOGICAL: Cranial nerves II through XII grossly intact. Normal speech, gait not observed. PSYCH: Normal mood, normal affect. SKIN: Warm, dry, normal turgor, no rashes or lesions noted Laboratory Results - last 24 hr 03/08/19 03/10/19 03/10/19 05:30 05:30 05:30 WBC 8.1 RBC 3.93 L Hgb 12.6 Hct 36.8 MCV 93.7 MCH 32.1 MCHC 34.3 RDW 13.1 Plt Count 228 MPV 8.0 Sodium 141 Potassium 4.0 Chloride 104 Carbon Dioxide 29 Anion Gap 7 L BUN 16 Creatinine 1.5 H Est GFR (CKD-EPI)AfAm 69.40 Est GFR (CKD-EPI)NonAf 59.88 Random Glucose 106 Calcium 9.0 IDALIA Screen Negative Active Medications Generic Name Dose Route Start Last Admin Trade Name Freq PRN Reason Stop Dose Admin Acetaminophen 650 mg 03/08/19 16:11 Tylenol - PO Q6H PRN FEVER > 101 Azithromycin 500 mg 03/09/19 10:00 03/09/19 12:41 Zithromax PO 500 mg DAILY [facility] Administration Docusate Sodium 200 mg 03/08/19 22:00 03/09/19 22:24 Colace - PO Not Given BID [facility] Ceftriaxone Sodium 1 gm/ 50 mls @ 200 mls/hr 03/09/19 10:00 03/09/19 09:38 Dextrose IVPB 200 mls/hr DAILY [facility] Administration Protocol Ranitidine HCl 150 mg 03/09/19 10:00 03/09/19 09:38 Zantac - PO 150 mg DAILY [facility] Administration Tamsulosin HCl 0.4 mg 03/09/19 08:30 03/09/19 09:38 Flomax - PO 0.4 mg DAILY@0830 [facility] Administration ASSESSMENT/PLAN: 33yo M with PMH of L nephrectomy (donated to sister 2009) found to have renal stone. Pt admitted to ICU after he developed hemoptysis after LMA extubation following ureteral stent placement. PULM -Hemoptysis s/o LMA extubation. Per Anesthesia note, patient may have bitten on LMA during extraction. -Titrated from Venturi mask to 2L NC, saturating >95 -CT chest shows b/l infiltrates concerning for aspiration PNA vs CAP v. blood v. vasculitis v. ARDS v. underlying disease -Ceftriaxone and azithromycin day 3 -ID consulted -Low suspicion for TB; Quant sent to r/o and d/c iso -Family history of DVT/PE; low suspicion for embolic event -Doppler negative for DVT -Urine antigens negative -Immunology studies pending RENAL -Solitary kidney -BELL likely 2/2 obstruction, s/p ureteral stent -Monitor creatinine, levels decreasing -Avoid nephrotoxic drugs PROPHYLAXIS -SCDs FEN -Lytes wnl -Regular diet Dispo: Patient stable for transfer to floors. Visit type - Emergency Visit Emergency Visit: Yes ED Registration Date: 03/07/19 Care time: The patient presented to the Emergency Department on the above date and was hospitalized for further evaluation of their emergent condition. - New Patient This patient is new to me today: No - Critical Care Critical Care patient: Yes Total Critical Care Time (in minutes): 35 Critical Care Statement: The care of this patient involved high complexity decision making to prevent further life threatening deterioration of the patient 's condition and/or to evaluate & treat vital organ system(s) failure or risk of failure.
--- NOTE | 2019-03-10 08:55 | PN ---
Physical Exam: SUBJECTIVE: Patient seen and examined OBJECTIVE: Vital Signs Period Temp Pulse Resp BP Sys/Bravo Pulse Ox Last 24 Hr 98.0 F-98.3 F 67-90 16-20 110-120/50-81 97-98 GENERAL: The patient is awake, alert, and fully oriented, in no acute distress. HEAD: Normal with no signs of trauma. EYES: PERRL, extraocular movements intact, sclera anicteric, conjunctiva clear. No ptosis. ENT: Ears normal, nares patent, oropharynx clear without exudates, moist mucous membranes. NECK: Trachea midline, full range of motion, supple. LUNGS: Breath sounds equal, clear to auscultation bilaterally, no wheezes, no crackles, no accessory muscle use. HEART: Regular rate and rhythm, S1, S2 without murmur, rub or gallop. ABDOMEN: Soft, nontender, nondistended, normoactive bowel sounds, no guarding, no rebound, no hepatosplenomegaly, no masses. EXTREMITIES: 2+ pulses, warm, well-perfused, no edema. NEUROLOGICAL: Cranial nerves II through XII grossly intact. Normal speech, gait not observed. PSYCH: Normal mood, normal affect. SKIN: Warm, dry, normal turgor, no rashes or lesions noted Laboratory Results - last 24 hr 03/08/19 03/10/19 03/10/19 05:30 05:30 05:30 WBC 8.1 RBC 3.93 L Hgb 12.6 Hct 36.8 MCV 93.7 MCH 32.1 MCHC 34.3 RDW 13.1 Plt Count 228 MPV 8.0 Sodium 141 Potassium 4.0 Chloride 104 Carbon Dioxide 29 Anion Gap 7 L BUN 16 Creatinine 1.5 H Est GFR (CKD-EPI)AfAm 69.40 Est GFR (CKD-EPI)NonAf 59.88 Random Glucose 106 Calcium 9.0 IDALIA Screen Negative Active Medications Generic Name Dose Route Start Last Admin Trade Name Freq PRN Reason Stop Dose Admin Acetaminophen 650 mg 03/08/19 16:11 Tylenol - PO Q6H PRN FEVER > 101 Azithromycin 500 mg 03/09/19 10:00 03/09/19 12:41 Zithromax PO 500 mg DAILY [facility] Administration Docusate Sodium 200 mg 03/08/19 22:00 03/09/19 22:24 Colace - PO Not Given BID K[facility]STOFER Ceftriaxone Sodium 1 gm/ 50 mls @ 200 mls/hr 03/09/19 10:00 03/09/19 09:38 Dextrose IVPB 200 mls/hr DAILY [facility]STOF[facility] Administration Protocol Ranitidine HCl 150 mg 03/09/19 10:00 03/09/19 09:38 Zantac - PO 150 mg DAILY [facility]OF[facility] Administration Tamsulosin HCl 0.4 mg 03/09/19 08:30 03/09/19 09:38 Flomax - PO 0.4 mg DAILY@0830 K[facility]STOF[facility] Administration ASSESSMENT/PLAN: 33 year old male with solitary kidney (donated to his sister in 2009) presented to the hospital c/o n/v and found to have renal stone. Pt admitted to ICU after he developed hemoptysis after LMA extubation following ureteral stent placement. S/p Ureteral Stent placement (POD #2) patient had a right ureteral stent placed by Dr. Davila- will need f/u in 2-3 weeks for further evaluation patient developed hemoptysis s/o LMA extubation. -CT chest shows b/l infiltrates concerning for aspiration PNA vs CAP -Ceftriaxone and azithromycin day 3 -ID on board -quanteferon pending however low suspicion for TB BELL on CKD -patients Cr downtrending (2.7 to 1.5 this AM) -avoid nephrotioxc drugs -will continue to monitor -Dr. Crow consulted #FEN LR @100 monitor electrolytes regular diet Problem List - Problems (1) Hemoptysis Code(s): R04.2 - HEMOPTYSIS (2) Elevated serum creatinine Code(s): R79.89 - OTHER SPECIFIED ABNORMAL FINDINGS OF BLOOD CHEMISTRY (3) Hematuria Code(s): R31.9 - HEMATURIA, UNSPECIFIED Qualifiers: Hematuria type: gross Qualified Code(s): R31.0 - Gross hematuria (4) Pneumonia Code(s): J18.9 - PNEUMONIA, UNSPECIFIED ORGANISM
[2019-03-10] MEDS ORDERED: ACETAMINOPHEN 325 MG TABLET (FP) PO PRN (09:06)
[2019-03-10] MEDS ORDERED: AZITHROMYCIN 500 MG TABLET PO SCH (10:00)
[2019-03-10] MEDS ORDERED: DOCUSATE SODIUM 100 MG CAPSULE (FP) PO SCH (10:00)
[2019-03-10] MEDS ORDERED: RANITIDINE HCL 150 MG TABLET (FP) PO SCH (10:00)
[2019-03-10] MEDS ORDERED: CEFTRIAXONE 1 GM in DEXTROSE 5%-WATER - 50 ML IVPB SCH (10:00)
[2019-03-10 10:35] VITALS: BP 105/62; PULSE 93; TEMP 98.3
[2019-03-10] MEDS ORDERED: cefTRIAXone SODIUM 1 GM VIAL ONE (12:20)
[2019-03-10] MEDS ORDERED: PT OWN MED DRAWER 7, Y5N ONE (12:20)
[2019-03-10] MEDS ORDERED: DEXTROSE 5%-WATER - 50 ML IVPB ONE (12:21)
[2019-03-10] MEDS ORDERED: TAMSULOSIN HCL 0.4 MG CAP PO ONE (12:34)
[2019-03-10] MEDS: TAMSULOSIN HCL 0.4 MG CAP PO SCH (12:36)
--- NOTE | 2019-03-10 13:25 | PN ---
Progress Note, Physician History of Present Illness: PULMONARY ALERT,NO DISTRESS,-CP,-SOB,-HEMOPTYSIS - Current Medication List Current Medications: Active Medications Acetaminophen (Tylenol -) 650 mg PO Q6H PRN PRN Reason: FEVER > 101 Azithromycin (Zithromax) 500 mg PO DAILY [facility] Last Admin: 03/10/19 12:31 Dose: 500 mg Docusate Sodium (Colace -) 200 mg PO BID [facility] Last Admin: 03/10/19 12:36 Dose: Not Given Ceftriaxone Sodium 1 gm/ (Dextrose) 50 mls @ 200 mls/hr IVPB DAILY [facility]; Protocol Last Admin: 03/10/19 12:31 Dose: 200 mls/hr Ranitidine HCl (Zantac -) 150 mg PO DAILY [facility] Last Admin: 03/10/19 12:36 Dose: Not Given Tamsulosin HCl (Flomax -) 0.4 mg PO DAILY@0830 [facility] - Objective Vital Signs: Vital Signs Temperature 98.3 F 03/10/19 09:00 Pulse Rate 93 H 03/10/19 09:00 Respiratory Rate 18 03/10/19 09:00 Blood Pressure 105/62 03/10/19 09:00 O2 Sat by Pulse Oximetry (%) 96 03/10/19 10:00 Constitutional: Yes: Well Nourished, Calm Eyes: Yes: WNL HENT: Yes: WNL Neck: Yes: WNL Cardiovascular: Yes: Regular Rate and Rhythm, S1, S2 Respiratory: Yes: CTA Bilaterally Gastrointestinal: Yes: Normal Bowel Sounds, Soft Extremities: Yes: WNL Edema: No Labs: CBC, BMP 03/10/19 05:30 03/10/19 05:30 INR, PTT INR 1.06 (0.83-1.09) 03/08/19 01:26 Problem List - Problems (1) Elevated serum creatinine Code(s): R79.89 - OTHER SPECIFIED ABNORMAL FINDINGS OF BLOOD CHEMISTRY (2) Hemoptysis Code(s): R04.2 - HEMOPTYSIS (3) History of nephrectomy, left Code(s): Z90.5 - ACQUIRED ABSENCE OF KIDNEY (4) Obstruction of ureter Code(s): N13.5 - CROSSING VESSEL AND STRICTURE OF URETER W/O HYDRONEPHROSIS Qualifiers: Laterality: right Qualified Code(s): N13.5 - Crossing vessel and stricture of ureter without hydronephrosis (5) Pneumonia Code(s): J18.9 - PNEUMONIA, UNSPECIFIED ORGANISM Assessment/Plan ASSESSMENT AND PLAN: Ureteral Stone s/p stent placement Hemoptysis resolved Pneumonia Acute on Chronic Renal Failure h/o Left Nephrectomy - ABX per ID - IVF - monitor urine output, creatinine - DVT prophylaxis - F/U CT Chest in [address] REZA
[2019-03-10] MEDS: LORATADINE 10 MG TABLET PO ONE (14:04)
--- NOTE | 2019-03-10 14:15 | PN ---
Progress Note (short form) - Note Progress Note: doing well still some intermittent cough, blood streaked Vital Signs Period Temp Pulse Resp BP Sys/Bravo Pulse Ox Last 24 Hr 98.0 F-98.3 F 67-93 16-20 105-120/50-81 96-98 cor-rrr lungs clear abd soft,nt ext no edema CBC, BMP 03/10/19 05:30 03/10/19 05:30 Microbiology 03/08/19 16:30 Urine - Urine Clean Catch Urine Culture - Final NO GROWTH OBTAINED 03/09/19 10:21 Urine For Antigen Detection Legionella Antigen - Final 03/09/19 10:21 Urine For Antigen Detection Streptococcus pneumoniae Antigen (M - Final repeat cxray is clear a/p CAP-hemoptysis resolving s/p ureteral stent for nephrolithiasis (one kidney) doubt AFB disease- no risk factors, acute illness, probably associated with pneumonia and LMA day # 3 rocephin/zithromax - can switch to po ceftin 500 bid to finish 7 days spoke to record label internship Dr Hurt ckd- monitor renal function Problem List - Problems (1) Pneumonia Code(s): J18.9 - PNEUMONIA, UNSPECIFIED ORGANISM (2) Nephrolithiasis Code(s): N20.0 - CALCULUS OF KIDNEY (3) Solitary kidney, acquired Code(s): Z90.5 - ACQUIRED ABSENCE OF KIDNEY
--- NOTE | 2019-03-10 14:19 | PN ---
Progress Note, Physician History of Present Illness: Pt seen and examined at bedside. He is awake and alert. He denies fevers or chills. He denies dysuria. He denies hematuria. He denies hemoptysis today. - Current Medication List Current Medications: Active Medications Acetaminophen (Tylenol -) 650 mg PO Q6H PRN PRN Reason: FEVER > 101 Azithromycin (Zithromax) 500 mg PO DAILY [facility] Last Admin: 03/10/19 12:31 Dose: 500 mg Docusate Sodium (Colace -) 200 mg PO BID [facility] Last Admin: 03/10/19 12:36 Dose: Not Given Ceftriaxone Sodium 1 gm/ (Dextrose) 50 mls @ 200 mls/hr IVPB DAILY [facility]; Protocol Last Admin: 03/10/19 12:31 Dose: 200 mls/hr Ranitidine HCl (Zantac -) 150 mg PO DAILY [facility] Last Admin: 03/10/19 12:36 Dose: Not Given Tamsulosin HCl (Flomax -) 0.4 mg PO DAILY@0830 [facility] - Objective Vital Signs: Vital Signs Temperature 98.3 F 03/10/19 09:00 Pulse Rate 93 H 03/10/19 09:00 Respiratory Rate 18 03/10/19 09:00 Blood Pressure 105/62 03/10/19 09:00 O2 Sat by Pulse Oximetry (%) 96 03/10/19 10:00 Constitutional: Yes: Calm Eyes: Yes: Conjunctiva Clear HENT: Yes: Atraumatic Neck: Yes: Supple Cardiovascular: Yes: S1, S2 Respiratory: Yes: CTA Bilaterally Gastrointestinal: Yes: Normal Bowel Sounds, Soft Genitourinary: Yes: WNL Musculoskeletal: Yes: WNL Edema: No Integumentary: Yes: WNL Neurological: Yes: Oriented Psychiatric: Yes: Oriented Labs: CBC, BMP 03/10/19 05:30 03/10/19 05:30 INR, PTT INR 1.06 (0.83-1.09) 03/08/19 01:26 - ....Imaging Chest X-ray: Report Reviewed Problem List - Problems (1) Hematuria Code(s): R31.9 - HEMATURIA, UNSPECIFIED Qualifiers: Hematuria type: gross Qualified Code(s): R31.0 - Gross hematuria (2) Hemoptysis Code(s): R04.2 - HEMOPTYSIS (3) History of nephrectomy, left Code(s): Z90.5 - ACQUIRED ABSENCE OF KIDNEY (4) Nephrolithiasis Code(s): N20.0 - CALCULUS OF KIDNEY Assessment/Plan Current Medications Generic Name Dose Route Start Last Admin Trade Name Aissatou PRN Reason Stop Dose Admin Acetaminophen 650 mg 03/10/19 09:06 Tylenol - PO Q6H PRN FEVER > 101 Azithromycin 500 mg 03/10/19 10:00 03/10/19 12:31 Zithromax PO 500 mg DAILY [facility] Administration Docusate Sodium 200 mg 03/10/19 10:00 03/10/19 12:36 Colace - PO Not Given BID [facility] Ceftriaxone Sodium 1 gm/ 50 mls @ 200 mls/hr 03/10/19 10:00 03/10/19 12:31 Dextrose IVPB 200 mls/hr DAILY [facility] Administration Protocol Ranitidine HCl 150 mg 03/10/19 10:00 03/10/19 12:36 Zantac - PO Not Given DAILY [facility] Tamsulosin HCl 0.4 mg 03/11/19 08:30 Flomax - PO DAILY@0830 [facility] Laboratory Tests 03/08/19 03/08/19 03/08/19 05:30 05:30 05:30 Creatinine Total Protein (PEP) Albumin (PEP) Globulin Albumin/Globulin Ratio Beta Globulins ARLINE M-Italo BEREKET Screen Negative c-ANCA Pending Proteinase 3 (PR3) Pending p-ANCA Pending Atypical p-ANCA Pending Myeloperoxidase Ab Pending Double Strand DNA Ab Glomerular Base Memb Ab Pending 03/10/19 03/10/19 03/10/19 05:30 05:30 05:30 Creatinine 1.5 H Total Protein (PEP) Pending Albumin (PEP) Pending Globulin Pending Albumin/Globulin Ratio Pending Beta Globulins Pending ARLINE M-Italo Pending BEREKET Screen c-ANCA Proteinase 3 (PR3) p-ANCA Atypical p-ANCA Myeloperoxidase Ab Double Strand DNA Ab Pending Glomerular Base Memb Ab Impression 1. BELL 2. nephrolithiasis 3. hemoptysis 4. PNA 5. s/p uretral stent Plan - renal function is improving, cont to monitor - bereket neg however serolgies are still pending - will need to follow serologies - will need urology follow up - abx per primary team - encourage PO hydration - follow vasculitis workup
--- NOTE | 2019-03-10 14:37 | DS ---
Physical Exam: SUBJECTIVE: Patient seen and examined OBJECTIVE: Vital Signs Period Temp Pulse Resp BP Sys/Bravo Pulse Ox Last 24 Hr 98.0 F-98.3 F 67-93 16-20 105-120/50-81 96-98 PHYSICAL EXAM GENERAL: The patient is awake, alert, and fully oriented, in no acute distress. HEAD: Normal with no signs of trauma. EYES: PERRL, extraocular movements intact, sclera anicteric, conjunctiva clear. ENT: Ears normal, nares patent, oropharynx clear without exudates, moist mucous membranes. NECK: Trachea midline, full range of motion, supple. LUNGS: Breath sounds equal, clear to auscultation bilaterally, no wheezes, no crackles, no accessory muscle use. HEART: Regular rate and rhythm, S1, S2 without murmur, rub or gallop. ABDOMEN: Soft, nontender, nondistended, normoactive bowel sounds, no guarding, no rebound, no hepatosplenomegaly, no masses. EXTREMITIES: 2+ pulses, warm, well-perfused, no edema. NEUROLOGICAL: Cranial nerves II through XII grossly intact. Normal speech, gait not observed. PSYCH: Normal mood, normal affect. SKIN: Warm, dry, normal turgor, no rashes or lesions noted. LABS Laboratory Results - last 24 hr 03/08/19 03/08/19 03/10/19 05:30 12:42 05:30 WBC 8.1 RBC 3.93 L Hgb 12.6 Hct 36.8 MCV 93.7 MCH 32.1 MCHC 34.3 RDW 13.1 Plt Count 228 MPV 8.0 Sodium Potassium Chloride Carbon Dioxide Anion Gap BUN Creatinine Est GFR (CKD-EPI)AfAm Est GFR (CKD-EPI)NonAf Random Glucose Calcium IDALIA Screen Negative TB Test (QFT) Nil 0.02 TB Test (QFT) Mitogen >10.00 TB Test (QFT) Antigen 0.02 TB Test (QFT) Negative TB Positive Criteria 03/10/19 05:30 WBC RBC Hgb Hct MCV MCH MCHC RDW Plt Count MPV Sodium 141 Potassium 4.0 Chloride 104 Carbon Dioxide 29 Anion Gap 7 L BUN 16 Creatinine 1.5 H Est GFR (CKD-EPI)AfAm 69.40 Est GFR (CKD-EPI)NonAf 59.88 Random Glucose 106 Calcium 9.0 IDALIA Screen TB Test (QFT) Nil TB Test (QFT) Mitogen TB Test (QFT) Antigen TB Test (QFT) TB Positive Criteria HOSPITAL COURSE: Date of Admission:03/07/19 Date of Discharge: 03/10/19 Minutes to complete discharge: 35 Discharge Summary Reason For Visit: HISTORY OF LEFT NEPHRECTOMY,HAMATURIA, CALCULUS Current Active Problems Elevated serum creatinine (Acute) Hematuria (Acute) Hemoptysis (Acute) History of nephrectomy, left (Acute) Nephrolithiasis (Acute) Obstruction of ureter (Acute) Pneumonia (Acute) Solitary kidney, acquired (Acute) Condition: Stable - Instructions Diet, Activity, Other Instructions: You came to the emergency room with complaints of kidney pain ,trouble urinating and you were found to have a non obstructing kidney stone You were seen by the urologist and underwent a procedure involving a stent placement. Subsequently after the procedure you developed pneumonia bilaterally and some hemoptysis. We started you on antibiotics and your cough improved and there was no longer blood present. In addition, you were seen by the kidney doctor for further evaluation. Your symptoms improved, your kidney numbers downtrended and you were stable to be discharged home. Please resume all of your home medications in addition: Please take the antibiotics Ceftin 500mg twice a day for a total of 4 more days Please take the medication Flomax 0.4mg daily Please follow up with the urologist, Dr. Coronado, within one to two weeks Please follow up with the certified novell administrator, Dr. Head, within one week Please follow up with the heating and cooling systems engineer, Dr. Barboza within one week Please follow up with Dr. Kinney within one week We Advised you to take copies of your CT Chest and will need followup in 4 to 6 weeks to have it repeated *if you begin to experience worsening chest pains, trouble breathing, problems urinating, nausea/vomiting, fevers please return to the emergency room immediately Referrals: Vega Coronado MD [Staff Physician] - 1 Week Kyle Kinney [Primary Care Provider] - 1 Week Ricardo Head MD [Staff Physician] - 1 Week Jesisca Barboza MD [Staff Physician] - 1 Week - Home Medications Comprehensive Discharge Medication List: Ambulatory Orders Diphenhydramine HCl [Benadryl Capsule -] 25 mg PO Q6H #28 capsule 08/07/13 EPINEPHrine (EPI-PEN 0.3MG) [Epipen 0.3MG -] 0.3 mg IM ASDIR #2 pens 08/07/13 Loratadine [Claritin -] 10 mg PO DAILY #30 tablet 08/07/13 Ranitidine HCl [Zantac 75] 75 mg PO DAILY #30 tablet 08/07/13 Cefuroxime Axetil [Ceftin -] 500 mg PO BID #8 tablet 03/10/19 Tamsulosin HCl [Flomax -] 0.4 mg PO DAILY@0830 #30 cap.er.24h 03/10/19 Problem List - Problems (1) Hemoptysis Code(s): R04.2 - HEMOPTYSIS (2) Elevated serum creatinine Code(s): R79.89 - OTHER SPECIFIED ABNORMAL FINDINGS OF BLOOD CHEMISTRY (3) Hematuria Code(s): R31.9 - HEMATURIA, UNSPECIFIED Qualifiers: Hematuria type: gross Qualified Code(s): R31.0 - Gross hematuria (4) Pneumonia Code(s): J18.9 - PNEUMONIA, UNSPECIFIED ORGANISM
[2019-03-10 17:10] LABS: ATYPICAL pANCA <1:20 titer (Neg:<1:20); C-ANCA <1:20 titer (Neg:<1:20); P-ANCA <1:20 titer (Neg:<1:20)
--- NOTE | 2019-03-10 18:27 | PN ---
Teaching Attending Note Name of Resident: Madeline Hurt ATTENDING PHYSICIAN STATEMENT I saw and evaluated the patient. I reviewed the resident's note and discussed the case with the resident. I agree with the resident's findings and plan as documented. SUBJECTIVE: Developed Hemoptysis s/p Urological Surgery - resolved. R flank discomfort resolved. No further nausea/vomiting. No fever/chills. Hematuria resolved OBJECTIVE: Afebrile, Hemodynamically Stable. Last Vital Signs Temp Pulse Resp BP Pulse Ox 98.3 F 93 H 18 105/62 96 03/10/19 09:00 03/10/19 09:00 03/10/19 09:00 03/10/19 09:00 03/10/19 10:00 Heart - S1, S2, RRR Lungs - clear to auscultation Abdomen - Soft, non-tender. Bowel Sounds normal. Extremities - no edema, no calf tenderness. Laboratory Results - last 24 hr 03/08/19 03/08/19 03/08/19 05:30 05:30 12:42 WBC RBC Hgb Hct MCV MCH MCHC RDW Plt Count MPV Sodium Potassium Chloride Carbon Dioxide Anion Gap BUN Creatinine Est GFR (CKD-EPI)AfAm Est GFR (CKD-EPI)NonAf Random Glucose Calcium IDALIA Screen Negative c-ANCA <1:20 Proteinase 3 (PR3) <3.5 p-ANCA <1:20 Atypical p-ANCA <1:20 Myeloperoxidase Ab <9.0 TB Test (QFT) Nil 0.02 TB Test (QFT) Mitogen >10.00 TB Test (QFT) Antigen 0.02 TB Test (QFT) Negative TB Positive Criteria 03/10/19 03/10/19 05:30 05:30 WBC 8.1 RBC 3.93 L Hgb 12.6 Hct 36.8 MCV 93.7 MCH 32.1 MCHC 34.3 RDW 13.1 Plt Count 228 MPV 8.0 Sodium 141 Potassium 4.0 Chloride 104 Carbon Dioxide 29 Anion Gap 7 L BUN 16 Creatinine 1.5 H Est GFR (CKD-EPI)AfAm 69.40 Est GFR (CKD-EPI)NonAf 59.88 Random Glucose 106 Calcium 9.0 IDALIA Screen c-ANCA Proteinase 3 (PR3) p-ANCA Atypical p-ANCA Myeloperoxidase Ab TB Test (QFT) Nil TB Test (QFT) Mitogen TB Test (QFT) Antigen TB Test (QFT) TB Positive Criteria Discharge Medications Medication Instructions Recorded Diphenhydramine HCl [Benadryl 25 mg PO Q6H #28 capsule 08/07/13 Capsule -] EPINEPHrine (EPI-PEN 0.3MG) 0.3 mg IM ASDIR #2 pens 08/07/13 [Epipen 0.3MG -] Loratadine [Claritin -] 10 mg PO DAILY #30 tablet 08/07/13 Ranitidine HCl [Zantac 75] 75 mg PO DAILY #30 tablet 08/07/13 Cefuroxime Axetil [Ceftin -] 500 mg PO BID #8 tablet 03/10/19 Tamsulosin HCl [Flomax -] 0.4 mg PO DAILY@0830 #30 cap.er.24h 03/10/19 ASSESSMENT AND PLAN: 33 year old male with PMH of L Nephrectomy (donated to sister, 2009), presents to ED with L flank pain, nausea, vomiting, oliguria and hematuria. Initially seen at [facility] urgent care, where CT A/P showed 5 mm obstructing R stone. Developed Hemoptysis s/p GA for Urological intervention 03/07. 1. BELL on CKD 3 and Hematuria secondary to R Obstructive Uropathy secondary to Nephrolithiasis - resolving s/p Ureteral stenting Creat 2.7 ---> 1.5 (at baseline) Solitary kidney s/p L Nephrectomy 2009 (electively donated to sister) POD 3 s/p Ureteral stenting by Urology. Passing urine spontaneously, hematuria resolved. Started on Flomax. Urine Cx negative. 2. Hemoptysis secondary to CAP - resolved CXR/CT Chest - bilateral infiltrates - much improved on repeat CXR today Treated with IV Ceftriaxone/Azithromycin - for DC on Ceftin as per ID Afebrile, Hemodynamically Stable. Pending vasculitis/autoimmune GN work-up - for Nephrology follow up on discharge. 3. Hypomagnesemia - repleted. Medically Stable for discharge on Ceftin with Pulmonary, Nephrology, Urology follow up.
[2019-03-11] MEDS ORDERED: TAMSULOSIN HCL 0.4 MG CAP PO SCH (08:30)
== END 2019-03-10 15:25 | disposition home or self-care (01) | DRG 659 ==
LOC: JER 15:05 → JERBED 16:37 → OBSVTOIN 17:06 → J8W 18:06 → JICU 22:58 → J5S 03-10 08:34
PROC: BT1DZZZ Fluoroscopy of Right Kidney, Ureter and Bladder (ICD-10-PCS; 2019-03-07)
PROC: 0T768DZ Dilation of Right Ureter with Intraluminal Device, Via Natural or Artificial Opening Endoscopic (ICD-10-PCS; principal; 2019-03-07 19:00)
DX: N13.2 Hydronephrosis with renal and ureteral calculous obstruction (principal); J18.9 Pneumonia, unspecified organism; R04.2 Hemoptysis; N17.9 Acute kidney failure, unspecified; N18.3 Chronic kidney disease, stage 3 (moderate); Z90.5 Acquired absence of kidney; R79.89 Other specified abnormal findings of blood chemistry; R31.0 Gross hematuria; K21.9 Gastro-esophageal reflux disease without esophagitis; E83.42 Hypomagnesemia
CPT/HCPCS: 36415; 71045-TC-FY; 71250-TC; 76000-TC-FY; 80048; 80053; 81003; 83516; 83520; 83735; 83880; 84100; 84155; 84165; 85025; 85027; 85379; 85610; 85651; 85730; 86038; 86140; 86225; 86256; 86480; 86850; 86900; 86901; 87086; 87899; 93005; 93010; 93306-TC; 93970-TC; 94760; 99283-25; G0378; J0131